=== PATIENT | female | born 1945 | race Caucasian/White ===

== ENCOUNTER → 2018-08-06 | Outpatient (CLI) | payer MEDICARE, BC ==
--- NOTE | 2018-08-10 15:16 | SLEEPCENT ---
DATE OF PROCEDURE: 08/06/2018 ORDERING PROVIDER: Dr. Louie Nocturnal polysomnography was performed for evaluation of sleep physiology in this patient with a history of excessive somnolence and nonrestorative sleep. 8 hours and 10 minutes of data were reviewed. There were 440 minutes of sleep identified. Sleep latency was short at 2 minutes. The patient did not achieve Rapid eye movement (REM) sleep. Sleep architecture was poor with poor progression and multiple fragmentations. Overall sleep efficiency was good at 91% but N3 or REM sleep was encountered. The patient's electrocardiogram showed an irregular supraventricular rhythm, possibly atrial fibrillation, ventricular response rate 90 beats per minute, ranging from 80-105. Electroencephalogram (EEG) showed mild coarsening in background, normal waveforms for awake and sleep. No focal events were identified. There were 310 respiratory events identified of 10 seconds in duration or greater for an apnea-hypopnea index of 42.3. The events were obstructive, not exclusive to sleep stage, more frequent but not exclusive to the supine posture. Arousals from respiratory events occurred 13.9 times per hour. There was also prominent limb activity. Some of the limb events were felt secondary to respiratory events, but limb movement arousal index was 8.2, snoring was noted over the entire study, and oxygen desaturations were seen into the low 80s. IMPRESSION: Severe obstructive sleep apnea syndrome (G47.33). Apnea-hypopnea index 42.3. RECOMMENDATIONS: The patient should be encouraged to return to sleep disorder center for pressure therapy. In the interim, alcohol and sedative avoidance should be practiced and caution exercised during the operation of motor vehicles.
== END ==
LOC: M SLEEP 20:00
PROVIDERS: ATTEND Internal Medicine Pulmonary Disease
DX: G47.30 Sleep apnea, unspecified (principal)

== ENCOUNTER → 2018-10-09 | Outpatient (CLI) | payer MEDICARE, BC ==
--- NOTE | 2018-10-10 15:51 | SLEEPCENT ---
DATE OF PROCEDURE: 10/09/2018 ORDERED BY: Dr. Louie Nocturnal polysomnography was performed for titration of pressure therapy in this patient with obstructive sleep apnea syndrome. Apnea-hypopnea index 42.3. For testing the patient was fit with a ResMed Quattro full face mask of small size; 4 cm of water pressure was applied to the circuit and the lights were extinguished. 7 hours and 30 minutes of data were reviewed. There were 298 minutes of sleep identified. Sleep latency was prolonged 58 minutes. Rapid eye movement (REM) latency was prolonged at 203.5 minutes. The sleep architecture improved in mid portion of the study. Overall sleep efficiency was 67.1%. Electrocardiogram (EKG) showed atrial fibrillation with a relatively regular rate of 68 beats per minute. Rate ranged from 60-83 per minute. EEG showed normal waveforms for awake and sleep stages. Respiratory events were reasonably well palliated with continuous positive airway pressure (CPAP) at a pressure of +7. Significant limb activity persisted despite pressure therapy. There were at least 3 trains of 30 events and the limb movement arousal index was 28.1. Significant increase from the patient's diagnostic night where the index was 84.2. IMPRESSION 1. Obstructive sleep apnea syndrome (G47.33). 2. Possible periodic limb movement disorder (G47.61). Limb movement arousal index 28.1. RECOMMENDATIONS: Nightly use of pressure therapy at 7 cm of water is sufficient to address the patient's obstructive respiratory events. Pending clinical response, interventions to reduce frequency or arousal from limb activity may also be helpful.
== END ==
LOC: M SLEEP 20:00
PROVIDERS: ATTEND Internal Medicine Pulmonary Disease
DX: G47.33 Obstructive sleep apnea (adult) (pediatric) (principal)

== ENCOUNTER → 2018-11-22 | Outpatient (CLI) | payer MEDICARE, BC ==
--- NOTE | 2018-11-22 10:55 | REP ---
REASON: Bronchiectasis. COMPARISON: 07/19/2008 a portable exam and the only prior. There is global cardiomegaly. Scattered asymmetric opacities are seen throughout the lung lay increased from the prior exam consistent with fibrotic change. The pleural angles are again seen to be sharp. The lung lay are hyperexpanded. There are chronic osseous changes. Since the last examination and intracardiac device has been placed. IMPRESSION: Marked chronic changes are suspected, however, since the latest prior examination is 07/19/2008 and a portable exam at that I cannot rule out the possibility of acute disease superimposed upon chronic change. There is no evidence of a pneumothorax. Other findings as described above. Electronically Signed by Antelmo Wallace DO 11/22/2018 10:57 A
== END ==
LOC: M SMT 10:14
PROVIDERS: ATTEND Internal Medicine Pulmonary Disease
DX: R91.8 Other nonspecific abnormal finding of lung field (principal)

== ENCOUNTER 2019-11-12 11:11 | Inpatient (IN) | payer MEDICARE, BC ==
[~2019-11-12] VITALS: Ht 170.2 cm; Wt 58.9 kg
[2019-11-12] MEDS: FUROSEMIDE 20 MG TAB PO SCH (09:00)
[2019-11-12 13:50] VITALS: BP 97/64
[2019-11-12] MEDS ORDERED: ALBUTEROL 90 MCG/ACT 8GM HFA INHALER INH PRN (14:30)
[2019-11-12] MEDS ORDERED: CEFE2INJ2 IV (14:44)
--- NOTE | 2019-11-12 14:50 | HPEPDOC ---
General Date of Admission 11/12/19 Date of Service: November 12, 2019 Chief Complaint The patient is a 74-year-old female admitted with a reason for visit of Worsening Pneumonia. History of Present Illness Patient is 74 years old female with past medical history of COPD with bronchiect asis, asthma, anxiety, chronic kidney diseases, [place], A. fib on Coumadin, mitral valve replacement with mechanical valve. Pseudomonas pneumonia was transferred to [facility] from [facility] we she was diagnosed with community-acquired pneumonia, atrial fibrillation with rapid ventricular rate and elevated troponin. Patient stated that for past 3 days has been having increased shortness of breath, associated with generalized weakness. In his [facility] patient was found elevated troponin to 0.1, blood culture was negative, no leukocytosis. CT chest was done and showed diffuse emphysema, pulmonary fibrosis, right upper lobe predominance likely secondary to pneumonia. Stool for blood was positive When I saw the patient patient was complaining of shortness of breath requiring 2 L of oxygen via nasal cannula, mid chest abdominal discomfort w/o radiation. Patient denied fever, chills, nausea, vomiting, diarrhea or dysuria. Home Medications Scheduled Aspirin (Aspirin EC) 81 Mg Tablet.dr, 81 MG PO DAILY, (Reported) Bupropion Hcl (Bupropion Xl) 150 Mg Tab.er.24h, 150 MG PO QHS, (Reported) Calcium Carbonate/Vitamin D3 (Calcium 600-Vit D3 400 Tablet) 1 Each Tablet, 1 TAB PO DAILY, (Reported) Cefepime in Iso-Osm Dextrose (Cefepime 2 gm Injection) 2 Gm/100 Ml Froz.piggy, 2 GM IV Q12H, (Reported) STARTED AT [facility] Digoxin (Digoxin) 125 Mcg Tablet, 125 MCG PO DAILY, (Reported) Diltiazem HCl (Diltiazem 24Hr ER) 180 Mg Cap.sa.24h, 180 MG PO DAILY, (Reported) Docusate Sodium (Colace) 100 Mg Capsule, 100 MG PO DAILY, (Reported) Enoxaparin Sodium (Enoxaparin Sodium) 60 Mg/0.6 Ml Syringe, 60 MG SQ Q12H, (Reported) Escitalopram Oxalate (Escitalopram Oxalate) 20 Mg Tablet, 20 MG PO DAILY, (Reported) Furosemide (Furosemide) 20 Mg Tablet, 20 MG PO DAILY, (Reported) Insulin Human Lispro (Humalog) 100 Unit/1 Ml Vial, 1 DOSE SC ACHS, (Reported) STARTED AT [facility] - PER SLIDING SCALE L. Rhamnosus GG/Inulin (Culturelle Capsule) 1 Each Cap.sprink, 1 CAP PO DAILY, (Reported) STARTED AT [facility] Metoprolol Succinate (Metoprolol Succinate) 50 Mg Tab.er.24h, 50 MG PO QHS, (Reported) Multivitamins (Thera M Plus Tablet) 1 Each Tablet, 1 TAB PO DAILY, (Reported) Pantoprazole Sodium (Pantoprazole Sodium) 40 Mg Tablet.dr, 40 MG PO DAILY, (Reported) Sitagliptin Phosphate (Januvia) 25 Mg Tablet, 25 MG PO DAILY, (Reported) Allergies Coded Allergies: sulfamethoxazole (Verified Allergy, Mild, RASH, 11/12/19) trimethoprim (Verified Allergy, Mild, RASH, 11/12/19) Past Medical History Medical History Asthma, atrial fibrillation, bronchiectasis, cervical arthritis, cryptogenic organizing pneumonia, osteopenia, Pseudomonas pneumonia, nonsustained, aspergillosis, CKD stage II, CVA, tachybradycardia syndrome. Surgical History Bronchoscopy, history of mitral wall replacement with mechanical valve, tubal ligation Family History I reviewed family history and found not pertinent Social History * Smoker: Denies Alcohol: Denies Drugs: denies A-FIB/CHADSVASC A-FIB History Current/History of A-Fib/PAF?: Yes Current PO Anticoag Therapy: Yes Review of Systems Constitutional: Reports: Malaise, Weakness; Denies: Fever Eyes: Denies: Pain ENT: Denies: Head Aches Skin: Denies: Rash, Lesions Pulmonary: Reports: Dyspnea, Cough Cardiovascular: Reports: Chest Pain, Palpitations Gastrointestinal: Denies: Nausea, Vomiting Genitourinary: Denies: Dysuria Endocrine: Denies: Polydipsia, Polyphagia Musculoskeletal: Denies: Neck Pain, Back Pain Neurological: Denies: Weakness Psych: Reports: Mood Normal Physical Examination General Exam: Positive: Alert, Cooperative, Mild Distress Eye Exam: Positive: PERRLA ENT Exam: Positive: Atraumatic Neck Exam: Positive: Supple; Negative: JVD Chest Exam: Positive: Rhonchi, Diminished Heart Exam: Positive: Irregular Rhythm Telemetry: Positive: Atrial fibrillation Abdomen Exam: Positive: Normal bowel sounds Extremity Exam: Positive: Clubbing; Negative: Cyanosis Skin Exam: Positive: Nl turgor and temperature Neuro Exam: Positive: Strength at 5/5 X4 ext, Cranial Nerves 3-12 NL Psych Exam: Positive: Mental status NL Vital Signs hr 90 Assessment/Plan Patient is 74 years old female with past medical history of COPD with bronchiectasis, asthma, anxiety, chronic kidney diseases, [place], A. fib on Coumadin, mitral valve replacement with mechanical valve. Pseudomonas pneumonia was transferred to [facility] from [facility] w e she was diagnosed with community-acquired pneumonia, atrial fibrillation with rapid ventricular rate and elevated troponin. Patient stated that for past 3 days has been having increased shortness of breath, associated with generalized weakness. In his [facility] patient was found elevated troponin to 0.1, blood culture was negative, no leukocytosis. CT chest was done and showed diffuse emphysema, pulmonary fibrosis, right upper lobe predominance likely secondary to pneumonia. Stool for blood was positive When I saw the patient patient was complaining of shortness of breath requiring 2 L of oxygen via nasal cannula, mid chest abdominal discomfort w/o radiation. Patient denied fever, chills, nausea, vomiting, diarrhea or dysuria. Problems (1) Sepsis Status: Acute Problem Text: 2/ CAP CT showed RL lung infiltrate. Pt has elevated LA, tachycardia and dyspnea hold Iv fluid given bilateral pleural effusion, pulmonary hypertension and right heart strain Await Bcx, sputum cx Levofloxacin IV Mrsa screen (2) Pneumonia Status: Acute Problem Text: Patient has a history of advanced COPD with bronchiectasis complicated by aspergillosis Patient recently had Pseudomonas pneumonia I will proceed with CTA to rule out PE Levofloxacin IV Incentive spirometry Inhalers (3) Chest pain Status: Acute Problem Text: We'll check troponin EKG showed atrial fibrillation with rapid ventricular rate Continue beta blockers for now Continue to monitor EKG Echo, BNP (4) Atrial fibrillation Status: Chronic Problem Text: Heart rate currently is under control, Will continue diltiazem and beta mila We'll check INR Continue beta blockers Patient has tachybradycardia syndrome Echo Appreciate/agree with log clerk consult (5) Cachexia Status: Chronic Problem Text: Patient has muscle wasting, low albumin High-protein diet Follow unit tender assessment Plan / VTE VTE Prophylaxis Ordered?: Yes LA LEGER DO November 12, 2019 14:49
[2019-11-12] MEDS ORDERED: ESCI20TA PO (14:56)
[2019-11-12] MEDS ORDERED: BUPR150T3 PO (14:56)
[2019-11-12] MEDS ORDERED: JANU25TA PO (14:56)
[2019-11-12] MEDS ORDERED: DIGO0.123 PO (14:56)
[2019-11-12] MEDS ORDERED: PANT40TA3 PO (14:56)
[2019-11-12] MEDS ORDERED: ASPI-161 PO (14:56)
[2019-11-12] MEDS ORDERED: METO1TAB7 PO (14:56)
[2019-11-12] MEDS ORDERED: FURO20TA2 PO (14:56)
[2019-11-12] MEDS ORDERED: INSUHUMDS SC (14:56)
[2019-11-12 15:17] LABS: ABG BASE EXCESS -2.3 (-2.0-2.0); ABG HCO3 21.5 MEQ/L (22.0-26.0); ABG O2 SATURATION 98.4 % (95.0-99.0); ABG PARTIAL PRESSURE O2 109.9 mmHg (75.0-100.0); ABG STANDARD HCO3 22.6 MEQ/L (22.0-26.0); ABG TOTAL CO2 22.5 MEQ/L (23.0-31.0); ABG pH (ARTERIAL) 7.431 UNITS (7.350-7.450)
[2019-11-12 15:18] LABS: HEMATOCRIT 28.8 % (36.0-47.0); HEMOGLOBIN 9.1 g/dl (12.0-15.5); MEAN CORPUSCULAR HEMOGLOBIN 32.3 pg (27.0-33.0); MEAN CORPUSCULAR HGB CONC 31.6 g/dl (32.0-36.5); MEAN CORPUSCULAR VOLUME 102.1 fl (80.0-96.0); PLATELET COUNT, AUTOMATED 173 10^3/uL (150-450); RED BLOOD COUNT 2.82 10^6/uL (4.00-5.40)
[2019-11-12] MEDS ORDERED: COLA100C5 PO (15:23)
[2019-11-12] MEDS ORDERED: VITMTA PO (15:23)
[2019-11-12] MEDS ORDERED: CULTCAP2 PO (15:23)
[2019-11-12] MEDS ORDERED: ENOX60IN3 SQ (15:23)
[2019-11-12] MEDS ORDERED: DILT1CAP3 PO (15:23)
[2019-11-12] MEDS ORDERED: CALC600T6 PO (15:23)
[2019-11-12 15:29] LABS: INR 1.28; PROTHROMBIN TIME 15.7 SECONDS (11.8-14.0)
[2019-11-12] MEDS: IPRATROPIUM 0.5MG/ALBUTEROL 2.5MG INH SOL UD 3ML (DUONEB)(J7620) INH SCH ×3 (15:39→23:23)
[2019-11-12 15:52] LABS: ALBUMIN 2.6 GM/DL (3.2-5.2); BILIRUBIN,TOTAL 0.3 MG/DL (0.2-1.0); CALCIUM LEVEL 8.9 MG/DL (8.8-10.2); CK-MB VALUE MASS 1.5 NG/ML (<3.6); CREATININE FOR GFR 1.37 MG/DL (0.55-1.30); GLOMERULAR FILTRATION RATE 40.3 (>39); MB/CK RELATIVE INDEX 6.82 (< OR =4); POTASSIUM SERUM 5.6 MEQ/L (3.5-5.1); TOTAL PROTEIN 6.4 GM/DL (6.4-8.2); TROPONIN I 0.07 NG/ML (< 0.10)
[2019-11-12] MEDS ORDERED: ISOVUE-370 76% 100ML VIAL As Ordered ONE (15:57)
[2019-11-12 16:00] VITALS: BP 100/60
[2019-11-12] MEDS: SODIUM CHLORIDE HYPERTONIC 3% 15ML NEB SOL INH SCH ×2 (16:00→23:25)
--- NOTE | 2019-11-12 17:05 | ECGEPIP ---
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
[2019-11-12] MEDS ORDERED: DEXTROSE 50% 50 ML SYRINGE IV STA ×2 (17:09→21:57)
[2019-11-12] MEDS ORDERED: HumuLIN R (REGULAR) INSULIN (NovoLIN R) **100U/ML** PER UNIT IV STA (17:09)
[2019-11-12] MEDS: LevoFLOXacin IV 750 MG in IV 1 EA IV SCH (17:16)
[2019-11-12] MEDS ORDERED: CALCIUM GLUCONATE 1,000 MG in D5W MINI-BAG PLUS 100 ML IV ONE (17:30)
[2019-11-12] MEDS ORDERED: NS 500 ML IV ONE (17:30)
[2019-11-12] MEDS ORDERED: ALBUTEROL SULFATE 2.5 MG/0.5 ML INH NEB SOLN NEB ONE (17:30)
[2019-11-12] MEDS ORDERED: FUROSEMIDE 20MG/2ML VIAL (J1940) IV SCH (18:00)
[2019-11-12] MEDS ORDERED: NS 1,000 ML IV SCH (18:30)
[2019-11-12 19:04] LABS: CALCIUM LEVEL 8.9 MG/DL (8.8-10.2); CREATININE FOR GFR 1.3 MG/DL (0.55-1.30); GLOMERULAR FILTRATION RATE 42.9 (>39); POTASSIUM SERUM 5.3 MEQ/L (3.5-5.1)
[2019-11-12] MEDS ORDERED: AMIODARONE HCL 150 MG in IV 1 EA IV STA ×2 (19:50→21:31)
[2019-11-12 20:00] VITALS: BP_SYST 100; BP_SYST 142; BP_DIAS 58; BP_DIAS 78
[2019-11-12] MEDS ORDERED: ENOXAPARIN 60MG/0.6ML SYRINGE (J1650 PER 10MG) SQ SCH (21:00)
[2019-11-12] MEDS ORDERED: METOPROLOL SUCC (TopROL XL) 50MG **XL** TAB PO SCH (21:00)
[2019-11-12 21:18] LABS: CALCIUM LEVEL 8.7 MG/DL (8.8-10.2); CREATININE FOR GFR 1.44 MG/DL (0.55-1.30); GLOMERULAR FILTRATION RATE 38.1 (>39); MAGNESIUM LEVEL 1.7 MG/DL (1.8-2.4); PHOSPHORUS LEVEL 1.7 MG/DL (2.5-4.9); POTASSIUM SERUM 5.5 MEQ/L (3.5-5.1); TROPONIN I 0.05 NG/ML (< 0.10)
[2019-11-12 21:20] VITALS: BP 98/60
[2019-11-12] MEDS: buPROPion **XL** TABLET 150MG (WELLBUTRIN XL) PO SCH (21:49)
[2019-11-12] MEDS ORDERED: K-PHOS NEUTRAL 250MG TABLET (SOD.PHOSPHATE/POT.PHOSPHATE) PO ONE (22:00)
[2019-11-12] MEDS ORDERED: MAGNESIUM OXIDE 400 MG TAB (MAG-OX) PO ONE (22:00)
[2019-11-12] MEDS ORDERED: HumuLIN R (REGULAR) INSULIN (NovoLIN R) **100U/ML** PER UNIT IV ONE (22:00)
[2019-11-12 22:08] VITALS: BP 96/56
[2019-11-12 22:30] VITALS: BP 94/56
[2019-11-12] MEDS ORDERED: AMIODARONE HCL 360 MG in IV 1 EA IV SCH (22:45)
[2019-11-12 23:13] LABS: DIGOXIN LEVEL 1.8 NG/ML (0.5-2.0)
[2019-11-13] VITALS (56 sets, daily range): BP systolic 74–120; BP diastolic 40–74; O2SAT 76
[2019-11-13] MEDS: SODIUM CHLORIDE HYPERTONIC 3% 15ML NEB SOL INH SCH
[2019-11-13] MEDS ORDERED: AMIODARONE HCL 150 MG in IV 1 EA IV STA ×4 (01:04→14:08)
[2019-11-13 01:48] LABS: HEMATOCRIT 27.8 % (36.0-47.0); MEAN CORPUSCULAR HEMOGLOBIN 32.5 pg (27.0-33.0); MEAN CORPUSCULAR HGB CONC 32.4 g/dl (32.0-36.5); MEAN CORPUSCULAR VOLUME 100.4 fl (80.0-96.0); PLATELET COUNT, AUTOMATED 169 10^3/uL (150-450); RED BLOOD COUNT 2.77 10^6/uL (4.00-5.40); WHITE BLOOD COUNT 7.5 10^3/uL (4.0-10.0)
[2019-11-13] MEDS: METOPROLOL TART 50 MG TAB PO SCH ×4 (01:49→20:00)
[2019-11-13 01:52] LABS: ALBUMIN 2.4 GM/DL (3.2-5.2); BILIRUBIN,TOTAL 0.3 MG/DL (0.2-1.0); CALCIUM LEVEL 8.8 MG/DL (8.8-10.2); CREATININE FOR GFR 1.35 MG/DL (0.55-1.30); MAGNESIUM LEVEL 1.8 MG/DL (1.8-2.4); PHOSPHORUS LEVEL 2.1 MG/DL (2.5-4.9); POTASSIUM SERUM 5.3 MEQ/L (3.5-5.1); TOTAL PROTEIN 6.1 GM/DL (6.4-8.2)
[2019-11-13] MEDS: IPRATROPIUM 0.5MG/ALBUTEROL 2.5MG INH SOL UD 3ML (DUONEB)(J7620) INH SCH ×3 (03:34→08:00)
[2019-11-13] MEDS ORDERED: AMIODARONE HCL 360 MG in IV 1 EA IV SCH (04:45)
[2019-11-13 05:53] LABS: HEMATOCRIT 28.3 % (36.0-47.0); HEMOGLOBIN 9.2 g/dl (12.0-15.5); MEAN CORPUSCULAR HEMOGLOBIN 32.7 pg (27.0-33.0); MEAN CORPUSCULAR HGB CONC 32.5 g/dl (32.0-36.5); MEAN CORPUSCULAR VOLUME 100.7 fl (80.0-96.0); PLATELET COUNT, AUTOMATED 192 10^3/uL (150-450); RED BLOOD COUNT 2.81 10^6/uL (4.00-5.40); WHITE BLOOD COUNT 9.4 10^3/uL (4.0-10.0)
[2019-11-13 06:25] LABS: ALBUMIN 2.5 GM/DL (3.2-5.2); BILIRUBIN,TOTAL 0.4 MG/DL (0.2-1.0); CALCIUM LEVEL 9.1 MG/DL (8.8-10.2); CREATININE FOR GFR 1.34 MG/DL (0.55-1.30); GLOMERULAR FILTRATION RATE 41.4 (>39); MAGNESIUM LEVEL 1.9 MG/DL (1.8-2.4); POTASSIUM SERUM 5.1 MEQ/L (3.5-5.1); TOTAL PROTEIN 6.2 GM/DL (6.4-8.2)
[2019-11-13] MEDS ORDERED: DOPamine HCL 400 MG in IV 1 EA IV SCH ×2 (07:00→07:53)
[2019-11-13] MEDS: DOBUTamine HCL 500,000 MCG in IV 1 EA IV SCH ×2 (07:15→23:44)
[2019-11-13] MEDS ORDERED: ATROPINE SULF 1MG/10ML SYRINGE (J0461) IV STA (07:45)
[2019-11-13] MEDS ORDERED: ATROPINE SULF 1MG/10ML SYRINGE (J0461) As Ordered ONE (07:47)
[2019-11-13] MEDS ORDERED: DOPamine 400 MG/500 ML BAG IN D5W (800MCG/ML) (J1265) As Ordered ONE (08:00)
[2019-11-13 08:08] LABS: ABG HCO3 15.4 MEQ/L (22.0-26.0); ABG O2 SATURATION 85.1 % (95.0-99.0); ABG PARTIAL PRESSURE CO2 24.9 mmHg (35.0-45.0); ABG PARTIAL PRESSURE O2 51.5 mmHg (75.0-100.0); ABG STANDARD HCO3 17.8 MEQ/L (22.0-26.0); ABG TOTAL CO2 16.1 MEQ/L (23.0-31.0); ABG pH (ARTERIAL) 7.408 UNITS (7.350-7.450)
[2019-11-13] MEDS: ONDANSETRON 4MG/2ML VIAL IV SCH ×4 (08:14→23:44)
[2019-11-13] MEDS ORDERED: FUROSEMIDE 100MG/10ML VIAL (J1940) As Ordered ONE (08:21)
[2019-11-13] MEDS ORDERED: FUROSEMIDE 100MG/10ML VIAL (J1940) IV ONE (08:30)
[2019-11-13] MEDS ORDERED: diltiaZEM **CD** 180 MG CAP PO SCH (09:00)
[2019-11-13] MEDS ORDERED: AMIODARONE 200 MG TAB (PACERONE) PO SCH ×2 (09:00)
[2019-11-13] MEDS ORDERED: DIGOXIN 0.125 MG TAB PO SCH (09:00)
[2019-11-13 09:38] LABS: CALCIUM LEVEL 8.6 MG/DL (8.8-10.2); CREATININE FOR GFR 1.59 MG/DL (0.55-1.30); POTASSIUM SERUM 5.5 MEQ/L (3.5-5.1)
[2019-11-13] MEDS ORDERED: SOD POLYSTYRENE SULFONATE SUSP 15 GM/60 ML UD PO ONE (10:00)
[2019-11-13] MEDS: ESCITALOPRAM OXALATE 10 MG TAB (LEXAPRO) PO SCH (10:22)
[2019-11-13] MEDS: PANTOPRAZOLE 40MG TAB (PROTONIX) PO SCH (10:22)
[2019-11-13] MEDS: ASPIRIN 81 MG ENTERIC TAB PO SCH (10:22)
[2019-11-13] MEDS: DOCUSATE SODIUM 100 MG CAP PO SCH (10:22)
[2019-11-13] MEDS: ENOXAPARIN 30MG/0.3ML SYRINGE (J1650 PER 10MG) SC SCH ×2 (10:22→20:29)
[2019-11-13] MEDS ORDERED: IPRATROPIUM 0.5MG/ALBUTEROL 2.5MG INH SOL UD 3ML (DUONEB)(J7620) INH PRN (11:15)
--- NOTE | 2019-11-13 11:19 | ECHO ---
DATE OF PROCEDURE: 11/12/2019 DATE OF : 1945 AGE: 74 GENDER: Female. HEIGHT: 67 inches WEIGHT: 121 pounds BODY SURFACE AREA: 1.63 m2 INPATIENT: Currently in the intensive care unit (ICU), room 3202. INDICATION: Abnormal EKG. MEASUREMENTS: 2-D Measurements: RV: 5.4 cm LV: 5.2 cm Septum: 1.0 cm Posterior wall: 1.0 cm Aortic root: 3.1 cm LA: 4.6 cm LVEF: 10-20% Doppler Measurements: AV: 1.5 m/sec LVOT: 1.1 m/sec LVOT diameter: 1.8 cm MV - E: 205, A: 237, EA ratio: 0.9 Mean MV diastolic gradient: 9 mmHg PV: 0.8 m/sec Pulmonary artery acceleration time: 70 ms RVSP: 68-73 mmHg IVC: 2.6 cm COMMENTS: Normal sinus rhythm with left bundle branch block. M-mode and two-dimensional echocardiography was performed with pulsed, continuous wave, color flow and tissue Doppler studies. Normal left ventricular size and wall thickness with paradoxical septal motion due to left bundle branch block as well as right ventricular pressure overload. Other wall motion was hypokinetic with apical akinesis. Global left ventricular systolic function severely impaired. Moderately dilated left atrium. Unable to comment on left ventricular diastolic function or estimate mean left atrial pressure in light of mitral valve disorder/prosthetic mitral valve. Prominently dilated right heart chambers with right ventricular free wall hypokinesis and severe pulmonary hypertension. Dilated pulmonary artery measuring 3.0 cm. Prominently dilated inferior vena cava with markedly reduced respiratory variation in keeping with an elevated central venous pressure. Normal aortic dimensions. Mild aortic valvular sclerosis with adequate cusp separation but premature closure in keeping with reduced forward stroke volume. Mild to moderate insufficiency. Bioprosthetic mitral valve with adequate cusp separation and mean gradient appropriate for this device. Mild prostatic insufficiency. Normal appearing tricuspid valve but severe tricuspid insufficiency. No apparent intracardiac mass or pericardial effusion.
[2019-11-13] MEDS: predniSONE 5 MG TAB PO SCH (11:50)
[2019-11-13] MEDS ORDERED: AMIODARONE HCL 150 MG/100 ML PREMIXED BAG (NEXTERONE) (J0282 PER 30MG) As Ordered ONE (12:10)
--- NOTE | 2019-11-13 12:49 | ECGEPIP ---
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 Rhythm change from atrial fibrillation 11/12/19 Electronically Signed on 11-13-2019 12:49:13 EDT by Dorian Dickson
[2019-11-13] MEDS: AMIODARONE 200 MG TAB (PACERONE) PO SCH ×3 (13:35→20:28)
[2019-11-13] MEDS: ACETAMINOPHEN TAB 650MG DOSE (2X325MG) PO PRN (14:04)
[2019-11-13] MEDS: FORMOTEROL FUMARATE 20 MCG/2 ML INHALATION SOLUTION (PERFOROMIST) INH SCH ×2 (14:19→19:50)
[2019-11-13] MEDS: BUDESONIDE 0.5 MG/2 ML INHALATION SUSPENSION INH SCH ×2 (14:21→19:50)
[2019-11-13] MEDS ORDERED: MORPHINE 2 MG/ML 1ML VIAL (J2270) IV PRN (14:45)
[2019-11-13 14:50] LABS: CALCIUM LEVEL 8.5 MG/DL (8.8-10.2); CREATININE FOR GFR 1.63 MG/DL (0.55-1.30)
--- NOTE | 2019-11-13 15:15 | IPNPDOC ---
Date Seen The patient was seen on 11/13/19. Progress Note SUBJECTIVE: Starting evening shift on 11/12/19 I was notified patient had been in atrial fibrillation with RVR with HR 140-198 7:00 PM-7:45 PM. Patient was in mild distress, was having chest pain, shortness of breath and lightheaded. BP showed MAP >65. ECG showed atrial fib with RVR, troponin neg. BNP was elevated even prior on admission at >40K. 2 amiodarone 150 mg boluses were administered c onsecutively, each being ran over 30 mins to prevent hypotension. Her blood pressure was high 90s, MAP >65. She was then started on amiodarone gtt. Atrial fib with RVR persisted with HR in 120s. Cardiology was called at this time (Dr. Dickson) and amiodarone gtt was stopped. I was instructed to give another amiodarone bolus, start metoprolol 50 mg PO Q6hrs (first dose right away) and to start on amiodarone 200 mg PO QID. I asked about holding parameters on metoprolol and the instruction was only to hold for HR <70 but no BP holding parameters. HR improved to 100-110. Electrolytes were replaced earlier in the evening, magnesium and phosphorous. She had an elevated K, she was given 10 U regular insulin with 1/2 amp dextrose push. Several hours after the administration of 3rd amiodarone bolus and metoprolol 50 mg PO, at 06:35 AM (prior to shift change) patient was on the toilet per nurse, HR went bradycardic at 42-43, patient was lightheaded, dizzy, diaphoretic, BP systolic 88 mmHg, MAP <65, 95 % on RA. Zofran was ordered for nausea. Cardiology was again called, dobutamine gtt was started per their recommendations. I asked if we should transfer to ICU, the instruction was to keep on PCU at this current time. Cardiology to see today. Case discussed in detail with oncoming provider. Seperate issue dealt with overnight included a bleeding internal hemorrhoid. Suppository added to medication regimen. H/H was checked and it was stable. OBJECTIVE: VITAL SIGNS: Please see below PHYSICAL EXAMINATION: GENERAL: Appears uncomfortable, mild distress but AAOx3 HEENT: AT/NC, EOM intact, PERRLA, corrective lenses in place CARDIOVASCULAR: S1, S2 +, irregularly irregular rhythm, bradycardic RESPIRATORY: crackles in bilateral lung bases, no wheezing/rhonchi/rales ABDOMINAL: BS + in 4 quadrants, soft, nontender, nondistended, no organomegaly : No external hemorrhoids seen, no bleeding. EXTREMITIES: warm, pulses +2 DP, PT, popliteal in lower ext, radial pulses strong bilateral upper ext, <2 seconds cap refill in upper and lower ext digits. ROM not tested, no edema NEUROLOGICAL: AAOx3, no focal deficits, CN 2-12 intact PSYCHOLOGICAL: Mood and affect appropriate. LABORATORY DATA: Please see below IMAGING: Echocardiogram to be done today ASSESSMENT: 74 y/o F with new onset bradycardia, decompensating congestive heart failure. PROBLEMS addressed over shift: 1. Bradycardia, medication induced vs. decompensating heart failure. Dopamine gtt. 2. Hypotension, medication induced vs. decompensating heart failure. Dopamine gtt. 3. Congestive heart failure, type unknown. echo to be done today 4. Atrial fibrillation with RVR. S/p 3 amiodarone boluses, amiodarone gtt. Stopped diltiazem and digoxin patient was previously on. Prior to bradycardia and hypotension metoprolol and amiodarone PO was added to regimen. 3. Hyperkalemia 4. Hypophosphatemia 5. N/V 2/2 to problem #2 currently 6. Bleeding internal hemorrhoid DISPOSITION: Status is guarded/critical. Discussed case with Dr. Schuster, oncoming provider. Would recommend transfer to ICU bed for close monitoring. VS, I&O, 24H, Fishbone Vital Signs/I&O Vital Signs Date Time Temp Pulse Resp B/P (MAP) Pulse Ox O2 Delivery O2 Flow Rate FiO2 11/13/19 13:35 101 90/54 11/13/19 13:00 98 HVNI-Vapotherm 20.0 80 11/13/19 12:00 97.8 28 I&O- Last 24 Hours up to 6 AM 11/13/19 06:00 Intake Total 240 ml Output Total 600 ml Balance -360 ml Laboratory Data 24H LABS Laboratory Tests 2 11/12/19 15:03: Nucleated Red Blood Cells % (auto) 0.0, Prothrombin Time 15.7H, Prothromb Time International Ratio 1.28, Anion Gap 8, Glomerular Filtration Rate 40.3, Lactic Acid Level 3.9*H, Calcium Level 8.9, Total Bilirubin 0.3, Aspartate Amino Transf (AST/SGOT) 17, Alanine Aminotransferase (ALT/SGPT) 42, Alkaline Phosphatase 117, Total Creatine Kinase 22L, Creatine Kinase MB 1.5, Creatine Kinase MB Relative Index 6.82H, Troponin I 0.07, Total Protein 6.4, Albumin 2.6L, Albumin/Globulin Ratio 0.7L, Procalcitonin 2.17 11/12/19 15:09: Blood Gas Bicarbonate Standard 22.6, Arterial Blood pH 7.431, Arterial Blood Partial Pressure CO2 33.0L, Arterial Blood Partial Pressure O2 109.9H, Arterial Blood Total CO2 22.5L, Arterial Blood HCO3 21.5L, Arterial Blood Base Excess - 2.3L, Arterial Blood Oxygen Saturation 98.4 11/12/19 16:08: Urine Color YELLOW, Urine Appearance CLEAR, Urine pH 5.0, Urine Specific [place] 1.016, Urine Protein NEGATIVE, Urine Glucose (UA) 1+H, Urine Ketones TRACEH, Urine Blood NEGATIVE, Urine Nitrite NEGATIVE, Urine Bilirubin NEGATIVE, Urine Urobilinogen 0.2, Urine Leukocyte Esterase NEGATIVE, Urine WBC (Auto) 1, Urine RBC (Auto) 1, Urine Hyaline Casts (Auto) 0, Urine Bacteria (Auto) NEGATIVE, Urine Squamous Epithelial Cells 1, Urine Sperm (Auto) 11/12/19 16:12: Methicillin-Resist S.aureus DNA PCR NOT DETECTED 11/12/19 17:38: Anion Gap 5L, Glomerular Filtration Rate 42.9, Calcium Level 8.9, OV-Ynl-O-Type Natriuretic Peptide [id number] 11/12/19 19:29: Lactic Acid Followup at 4 Hours 3.9*H 11/12/19 20:37: Anion Gap 9, Glomerular Filtration Rate 38.1L, Calcium Level 8.7L, Phosphorus Level 1.7L, Magnesium Level 1.7L, Troponin I 0.05#, Digoxin Level 1.8 11/13/19 01:04: Anion Gap 10, Glomerular Filtration Rate 41.0, Calcium Level 8.8, Phosphorus Level 2.1#L, Magnesium Level 1.8, Total Bilirubin 0.3, Aspartate Amino Transf (AST/SGOT) 17, Alanine Aminotransferase (ALT/SGPT) 39, Alkaline Phosphatase 103, Total Protein 6.1L, Albumin 2.4L, Albumin/Globulin Ratio 0.6L 11/13/19 01:44: Nucleated Red Blood Cells % (auto) 0.0 11/13/19 05:16: Nucleated Red Blood Cells % (auto) 0.0, Anion Gap 7L, Glomerular Filtration Rate 41.4, Calcium Level 9.1, Magnesium Level 1.9, Total Bilirubin 0.4, Aspartate Amino Transf (AST/SGOT) 19, Alanine Aminotransferase (ALT/SGPT) 39, Alkaline Phosphatase 106, Total Protein 6.2L, Albumin 2.5L, Albumin/Globulin Ratio 0.7L 11/13/19 07:50: Blood Gas Bicarbonate Standard 17.8L, Arterial Blood pH 7.408, Arterial Blood Partial Pressure CO2 24.9L, Arterial Blood Partial Pressure O2 51.5L, Arterial Blood Total CO2 16.1L, Arterial Blood HCO3 15.4L, Arterial Blood Base Excess - 8.0L, Arterial Blood Oxygen Saturation 85.1L 11/13/19 09:08: Anion Gap 11, Glomerular Filtration Rate 34.0L, Calcium Level 8.6L 11/13/19 13:58: CBC/BMP Laboratory Tests 11/12/19 15:03 11/12/19 17:38 11/12/19 20:37 11/13/19 01:04 11/13/19 01:44 11/13/19 05:16 11/13/19 09:08 Microbiology Microbiology 11/12/19 Blood Culture, Received Pending Cornelia Herndon MD November 13, 2019 15:15
--- NOTE | 2019-11-13 15:25 | IPNPDOC ---
Text Note Date of Service The patient was seen on 11/13/19. NOTE Subjective: Overnight patient developed atrial fibrillation with rapid ventri cular rate, patient received amiodarone and beta blockers subsequently she developed hypotension with bradycardia, patient received dobutamine and dopamine drip, blood pressure was stabilized. Objective: GENERAL: In severe distress HEENT: Plus JVD, PERRLA CARDIOVASCULAR: irregularly irregular rhythm, S1-S2 RESPIRATORY: Bilateral crackles ABDOMINAL: , soft, nontender, nondistended, no organomegaly EXTREMITIES: +2 pitting edema NEUROLOGICAL: Mildly confused, forgetful, cranial nerves from 2-12 intact Assessment and plan: Patient is 74 years old female with past medical history of COPD with b ronchiectasis, asthma, anxiety, chronic kidney diseases, VA, A. fib on Coumadin, mitral valve replacement with mechanical valve. Pseudomonas pneumonia was transferred to [facility] from [facility] we she was diagnosed with community-acquired pneumonia, atrial fibrillation with rapid ventricular rate and elevated troponin. Patient stated that for past 3 days has been having increased shortness of breath, associated with generalized weakness. [facility] was found elevated troponin to 0.1, blood culture was negative, no leukocytosis. CT chest was done and showed diffuse emphysema, pulmonary fibrosis, right upper lobe predominance likely secondary to pneumonia. Stool for blood was positive. During hospital stay patient developed atrial fibrillation with rapid ventricular rate treated with amiodarone and beta blockers, developed hypotension and bradycardia requiring pressor support. Also patient was found have a pulmonary hypertension with ejection fraction of 10%. After lengthy discussion with her sons the CODE STATUS was changed to DNR/DNI. Overall prognosis guarded due to multiple comorbidities including advanced COPD bronchiectasis and pulmonary fibrosis superimposed with pneumonia and acute combined systolic and diastolic CHF. Patient currently is on vasopressors. The family will make decision about PLASTIC TILE SETTER when her son who lives in [place] will come to the hospital. Problems (1) Sepsis 2/[address] showed RL lung infiltrate. Pt has elevated LA, tachycardia and dyspnea hold Iv fluid given bilateral pleural effusion, pulmonary hypertension and right heart strain Bcx negative Await sputum cx Levofloxacin IV Mrsa screen negative (2) Pneumonia Patient has a history of advanced COPD with bronchiectasis complicated by aspergillosis Patient recently had Pseudomonas pneumonia CTA was negative for PE, showed bilateral pulmonary effusion with pulmonary fibrosis right lower lobe infiltrate and right heart strain, official report pending. Levofloxacin IV Incentive spirometry Inhalers (3) Chest pain Resolved for now (4) Atrial fibrillation Heart rate currently is under control, patient continues to be on the dopamine and dobutamine drip. Echo showed 10% ejection fraction with severe pulmonary hypertension repair cameraman team follows her (5) Cachexia Patient has muscle wasting, low albumin High-protein diet Follow chemistry lab instructor assessment Acute CHF Combined systolic and diastolic Ejection fraction 10% with severe pulmonary hypertension Continue dopamine and dobutamine drip Morphine for dyspnea Plan / VTE VTE Prophylaxis Ordered?: Yes VS,Fishbone, I+O VS, Fishbone, I+O Laboratory Tests 11/12/19 17:38 11/12/19 20:37 11/13/19 01:04 11/13/19 01:44 11/13/19 05:16 11/13/19 09:08 11/13/19 13:58 Vital Signs Date Time Temp Pulse Resp B/P (MAP) Pulse Ox O2 Delivery O2 Flow Rate FiO2 11/13/19 13:35 101 90/54 11/13/19 13:00 98 HVNI-Vapotherm 20.0 80 11/13/19 12:00 97.8 28 I&O- Last 24 Hours up to 6 AM 11/13/19 06:00 Intake Total 240 ml Output Total 600 ml Balance -360 ml LA LEGER DO November 13, 2019 15:25
[2019-11-13] MEDS ORDERED: diphenhydrAMINE 50MG/ML VIAL (J1200) IV PRN (15:45)
--- NOTE | 2019-11-13 20:05 | CR ---
DATE OF CONSULTATION: 11/13/2019 CARDIOLOGY CONSULTATION REFERRING PHYSICIAN: Dr. Erasto Schuster, hospitalist INDICATION: Paroxysmal atrial fibrillation with history of tachy-yanna syndrome/respiratory distress. HISTORY: This is a 74-year-old, , mother of two grown children, resident of [place], [place], has a history of advanced pulmonary disease, sarcoidosis, bronchiectasis, aspergillosis, chronic bronchitis, and significant nontreated obstructive sleep apnea as well as mitral valvular heart disease, status post bioprosthetic valve replacement last year, [facility]. She was transferred to [facility] yesterday, having been an inpatient at [facility] in [place] for the past 5 days, admitted with acute on chronic respiratory distress and suspected pneumonia. Her course was complicated by paroxysmal atrial fibrillation with rapid ventricular response and episodic marked bradycardia. At the time of her transfer yesterday, her initial vital signs showed a heart rate of 91 beats per minute, blood pressure 97/64, respiratory rate of 24, and oxygen saturation of 98 on supplemental oxygen by nasal prongs at 2 liters per minute. She was afebrile. A chest CT scan that has not been reported showed evidence of advanced pulmonary problems as well as significant cardiomegaly with left atrial and significant right heart chamber enlargement. Left ventricle appeared to be normal in size. Findings in keeping with her known mitral valvular heart disease and severe pulmonary hypertension and right heart failure. Initial telemetry strips showed a sinus rhythm with left bundle branch block. An echocardiogram performed yesterday shortly following her admission showed evidence of a normal left ventricular size and wall thickness but septal wall motion abnormality and global systolic function that was severely impaired, left ventricular ejection fraction (LVEF) 10-%-20%. Her prosthetic mitral valve appear to be functioning appropriately with a mildly to moderately dilated left atrium. Right heart chambers were significantly dilated with severe pulmonary hypertension, right ventricular systolic pressure are measuring 68-73 mm of mercury, and significantly dilated inferior vena cava with reduced respiratory collapse, in keeping with right heart failure. No pericardial effusion. Admission blood work showed a macrocytic anemia with hemoglobin 9.1. Normal white blood cell count and platelet count, PT/INR that was increased to 15.7/1.28. Arterial blood gas on supplemental oxygen showed a pH of 7.43, pCO2 of 33, pO2 of 109.9. Initial potassium was elevated at 5.6, but other electrolytes were normal. BUN was 43, creatinine 1.37. Random glucose was elevated at 231. Liver function studies were normal except for her elevated PT/INR and albumin of 2.6. Ultrasensitive TSH in the past has been normal. Her troponin I was within normal limits given her renal function, but proBNP level was 43,362, as we might expect based of her echocardiographic findings. She had been admitted to a telemetry floor with insulin sliding scale continued combination albuterol, amiodarone, metoprolol succinate with hold parameter and low-dose intravenous (IV) Lasix. At approximately 8 p.m. yesterday, she developed recurrent atrial fibrillation with rapid ventricular response, rates up to 190 beats per minute with blood pressure in the 90s systolic. I was consulted and recommended the use of parenteral amiodarone with continued metoprolol succinate 50 mg by mouth every 6 hours with hold parameters for heart rate less than 70. At approximately 4 in the morning, she converted her rhythm from atrial fibrillation to initially a junctional rhythm in the 40s and was started on dobutamine IV infusion. Because of the patient distress, hypoxia, and relative hypotension, she was also started on dopamine IV infusion and transferred to the intensive care unit. By the time she arrived in the intensive care unit, her heart rate was in the 60s, EKG showing sinus rhythm with left bundle branch block, and her blood pressure was in the 90s on high-flow oxygen. Her oxygen saturation improved to 100%. Pulmonary medicine was following her case closely, and she remained on IV antibiotic therapy, albuterol, and controlled supplemental oxygen. Despite our gradually weaning down her dopamine and dobutamine, she developed recurrent atrial fibrillation with rapid ventricular response at 150 beats per minute (BPM) at noon. We administered recurrent doses of amiodarone 150 mg IV infusion over 10 minutes over the course of several hours, because of a heart rate in excess of 100 BPM. At approximately 2:30, she developed recurrent marked bradycardia, junctional rhythm. Her blood pressure was in the 90s systolic, but her oxygen saturation was starting to fall. I had spoken frankly with her children, Castro, her son in [place], and Ankit, her son in [place], on the phone, and personally regarding her very guarded, non-fixable medical problems, and extremely poor prognosis. Dr. Cordon of pulmonary medicine also discussed her advanced non-fixable pulmonary problems. The appeared to understand, and despite the patient having mentioned she withdrew her DO NOT RESUSCITATE/DO NOT INTUBATE on her presentation, it was apparent the patient was confused at this time, and her family members reinstituted her DO NOT RESUSCITATE. OTHER CARDINAL CARDIAC SYMPTOMS: The patient denied experiencing any chest discomfort. Did complain of shortness of breath and weakness but apparently had no awareness of her heart action per se. No evidence of embolic phenomenon. No history of claudication. Customarily restricted by dyspnea but had been living at home with assistance. OTHER KNOWN PAST CARDIAC DISEASE: The patient is not aware of the name of her technical information specialist at [facility] or the surgeon who performed her mitral valve replacement (bioprosthetic) last year at the [facility]. No known coronary artery disease. History of paroxysmal atrial fibrillation, as mentioned. Has been on oral anticoagulant therapy. OTHER KNOWN PAST MEDICAL HISTORY: As mentioned advanced, COPD/bronchiectasis, hyperactive airway disease, Pseudomonas pneumoniae, and obstructive sleep apnea (the latter not treated). Diffuse emphysema and pulmonary fibrosis. SYSTEMS REVIEW: Unfortunately, we are unable to obtain meaningful history from the patient, and there are no current records from [facility] from our review. FAMILY HISTORY: Not applicable. CURRENT MEDICATIONS: - amiodarone 200 mg by mouth four times a day - metoprolol 50 mg by mouth every 6 hours; hold for heart rate less than 100 - albuterol inhaler two puffs every 4 hours as needed for dyspnea - levofloxacin 750 mg IV every 48 hours - Wellbutrin 150 mg by mouth at bedtime - Zofran 4 mg IV every 6 hours as needed for nausea - Perforomist 20 mcg inhaler one ablation twice a day - Pulmicort 0.5 mg inhaler, one inhalation twice a day - prednisone 5 mg by mouth daily - Protonix 40 mg by mouth daily - Lexapro 20 mg by mouth daily - Colace 100 mg by mouth daily - aspirin 81 mg daily - enoxaparin 30 mg subcutaneous every 12 hours - Tylenol 650 mg by mouth every 6 hours as needed for pain or fever ALLERGIES: SEPTRA. PHYSICAL EXAMINATION: CONSTITUTIONAL: A thin, somewhat cachectic, lethargic, elderly woman, currently appearing mildly distressed because of abdominal discomfort/nausea. Denying chest pain and acutely not dyspneic. VITAL SIGNS: Heart rate when examined her before noon 72 beats per minute and regular with occasional irregularity, blood pressure 94/60, respiratory rate 24 per minute, oxygen saturation 100% on supplemental oxygen high flow at 80%. Weight 124 pounds, height 67 inches, body mass index (BMI) 19.4. EYES: Slightly pale conjunctivae but no icterus or petechiae. No xanthelasma. ENT/MOUTH: Normal oral moisture. No central cyanosis. NECK: Trachea midline. Neck veins were elevated 6-8 cm above the (cut off). No thyroid enlargement. RESPIRATORY: Increased anterior-posterior chest diameter with reduced the chest excursion. Has fine inspiratory crepitations, both lower lobes posteriorly, the right more than left with prolonged expiration but no current audible wheeze. CARDIOVASCULAR: Apical impulse was palpable despite her increased chest diameter at the left anterior axillary line, 6th intercostal space. Heart sounds were slightly distant with soft S1, normal S2 intensity, but persistent S2 splinting. No audible gallop. Has a soft systolic ejection murmur but no audible prosthetic mitral insufficiency murmur. Normal carotid upstrokes with reduced carotid volume but no bruits. Upper extremity pulses and femoral pulses were symmetrical and normal. Pedal pulses were reduced. Abdominal aorta not palpable. EXTREMITIES: Has virtually no lower extremity or sacral pitting edema. No varicose veins. No clubbing, peripheral cyanosis, or splinter hemorrhages. GASTROINTESTINAL: Soft but vaguely diffusely tender and somewhat protuberant. Has reduced the bowel sounds. No apparent hepatosplenomegaly. RECTAL: Examination not indicated. MUSCULOSKELETAL: No obvious joint deformities but obvious proximal muscle wasting and weakness. Normal tone. NEUROLOGIC/PSYCHIATRIC: Was aware of where she was in hospital but poor memory for recent events. Eye, facial, and extremity movements were symmetrical. Obviously could not assess her gait. No involuntary movements. Lethargic, as mentioned. SKIN: Slightly pale but no icterus. No ecchymotic lesions or rashes. INVESTIGATIONS: CT chest angiography: Study performed yesterday, reviewed independently, shows obvious cardiomegaly with normal-appearing left ventricular size and wall thickness. At least moderately dilated left atrium. Echogenic bioprosthetic valve in the mitral position. Aortic root and thoracic aorta were of normal size. Minimal aortic valvular sclerosis. Some coronary calcification. Dilated pulmonary trunk at least 3 cm. Prominently dilated right ventricle and markedly dilated right atrium and inferior vena cava. No pericardial effusion. Small bilateral pleural effusions. The proximal pulmonary vessels were prominent with pruning, diffuse interstitial fibrosis, hyperinflated lung lay. No localized infiltrate apparently. EKGs: Tracings reviewed independently were described above, showing atrial fibrillation and sinus rhythm with left atrial conduction disturbance and left bundle branch block. Echocardiogram: Findings as described above. Blood work: Blood work this morning showed a hemoglobin of 9.2 and macrocytosis, unchanged from serial studies the past 24 hours. Normal white blood cell counts despite her distress. Normal platelet counts. Arterial blood gas showing evidence of hyperventilation with CO2 down to 24.9 this morning. Arterial blood also showed hypoxia with partial oxygen measuring 51.5. A pH was normal at 7.4. Chemistry this morning showed a mild degree of hyperkalemia with very mild hyponatremia, remarkably normal bicarbonate. Serial BUNs stable in the 40-45 range. Slightly worsening serum creatinine, initially 1.3. This has drifted to 1.6 on her last study at 2 p.m. this afternoon. Serial glucose values were elevated. At 9 this morning it was 341. Serum albumin low at 2.5. Serum calcium values expected to be slightly low. Serum magnesium was normal at 1.8. Liver function studies were otherwise normal. Serial troponin I levels, as mentioned, marginally increased, and markedly elevated proBNP level. IMPRESSION/PLAN: 1. Tachy-yanna syndrome/paroxysmal atrial fibrillation with rapid ventricular response: Somewhat challenging situation with paroxysmal atrial fibrillation related to her mitral valvular heart disease and cor pulmonale. Remarkably rapid ventricular responses documented despite combination antiarrhythmic negative chronotropic therapies. Symptomatic bradyarrhythmia, successfully was resuscitated with IV dobutamine and low-dose dopamine infusions. On enoxaparin, systemic anticoagulation has been free of hemorrhagic complication or thromboembolic event. With her combination advanced medical problems, including dementia, end-stage pulmonary disease, and end-stage cardiac disease with severe pulmonary hypertension, she is not a candidate for invasive intervention that here would be a biventricular implantable cardioverter defibrillator (ICD). The patient has been made DO NOT RESUSCITATE by her family. 2. Paroxysmal atrial fibrillation: For the time being, we have left her on amiodarone 200 mg by mouth four times a day with metoprolol 50 mg by mouth every 6 hours as needed for heart rate faster than 100 BPM. Currently on corrected-dose enoxaparin subcutaneous every 12 hours. 3. Heart failure (systolic and diastolic dysfunction/acute on chronic): Has advanced left ventricular dysfunction. It may well be tachycardia mediated in addition to her left bundle branch block and severe pulmonary hypertension. Currently, hypoxia primarily related to her lung disease. Markedly elevated at proBNP level I suspect is more related to her right heart failure and hypotension prompted by her paroxysmal atrial fibrillation and elevated mean left atrial pressure with her tachyarrhythmia and loss of atrial kick. Currently remains on low-dose dobutamine and dopamine infusion to improve left ventricular systolic function and renal perfusion until her family members arrive to discuss comfort care. 4. Mitral valve disorder (nonrheumatic)/post mitral valve replacement (bioprosthetic): Her echocardiogram demonstrates appropriate function of her prosthetic device. No symptoms or signs of endocarditis. 5. Chronic cor pulmonale/right heart failure: As demonstrated on her chest CT angiogram and echocardiogram, she has severe pulmonary hypertension related to multiple pulmonary issues, including nontreated sleep apnea (related to her dementia and noncompliance), advanced emphysema and bronchiectasis, as well as pulmonary fibrosis, followed by pulmonary medicine and infectious disease. Currently receiving controlled supplemental oxygen, parenteral antibiotic therapy, and bronchodilators with low-dose steroid. As mentioned above, I have spoken quite frankly with her children regarding her advanced/end-stage/non-fixable cardiac and pulmonary conditions. We do not anticipate she will survive this admission. She is currently DO NOT RESUSCITATE/DO NOT INTUBATE, and we await for family to arrive to further discuss comfort care measures. I thank you for allowing me to participate in the care of your patient. I will plan on following her closely with you.
[2019-11-13] MEDS: buPROPion **XL** TABLET 150MG (WELLBUTRIN XL) PO SCH (20:28)
--- NOTE | 2019-11-13 20:46 | CR ---
DATE OF CONSULTATION: 11/13/2019 CHIEF COMPLAINT: Shortness of breath. HISTORY OF PRESENT ILLNESS: Ms. Dumas is a 74-year-old female with a past medical history of chronic obstructive airways disease, thought to be secondary to asthma, as well as a history of bronchiectasis and some pulmonary fibrosis, anxiety, chronic kidney disease (CKD), coronary artery disease (CAD) with a history of myocardial infarction (IN), atrial fibrillation, mitral valve replacement, previous history of Aspergillus and pseudomonas, who was transferred to [facility] from [facility], where she had been admitted for the past few days and was being treated for possible pneumonia as well as atrial fibrillation with rapid ventricular response (RVR) with some demand ischemia. The patient had been reporting symptoms of worsening shortness of breath as well as generalized weakness. She was treated at [facility] with broad-spectrum antibiotics with cefepime but had continued to have shortness of breath as well as persistent hypoxemia requiring nasal cannula oxygen supplementation. After her transfer here to [facility], patient had complained of some midchest heaviness as well as some abdominal discomfort. Patient had a CT angiogram performed to evaluate for possible pulmonary embolism (PE) given her tachycardia and hypoxia. She was also started on Levaquin and continued with her home medications. Fluids were held due to concern for possible fluid overload with her admission CT. Overnight, the patient had gone into atrial fibrillation with rapid ventricular response with heart rate of 140-198. She was complaining also of lightheadedness, shortness of breath, and chest pain. The patient was given amiodarone loading and then started on an amiodarone drip initially. Cardiology was consulted, and the amiodarone drip was discontinued, and the patient was placed on metoprolol and continued with oral amiodarone. The patient's heart rate had improved; however, she then had an episode of bradycardia as well as lightheadedness and dizziness. Her blood pressure had dropped with mean arterial pressure (MAP) below 65, and she was complaining of nausea and some vomiting as well. The patient was started on dobutamine drip as well as dopamine and transferred to intensive care unit (ICU) for further management. The patient was also noted during all of this to require increasing amounts oxygen supplementation and was transferred to the ICU with a non-rebreather. There was some discussion about placing the patient on noninvasive positive pressure ventilation; however, when I saw the patient, she was continuing to have nausea and periodic retching and vomiting. Therefore, she was placed instead on Vapotherm for her hypoxemic respiratory failure with improvement in her oxygenation. The patient had also gone back into sinus rhythm, and her heart rate was controlled. Her blood pressure had also improved with the dobutamine and the dopamine. She was given a dose of Lasix 60 mg IV and had a Ricketts catheter placed. PAST MEDICAL AND SURGICAL HISTORY: 1. Chronic obstructive airways disease, thought to be secondary to asthma with chronic remodeling. 2. Bronchiectasis. 3. 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 4. History of chronic pseudomonas. Was being followed by Dr. Ford. 5. Chronic steroid dependence. 6. Previous history of Aspergillus. 7. CAD with history of IN. 8. Mitral valve replacement. 9. Atrial fibrillation, on anticoagulation. 10. Chronic kidney disease (CKD). 11. Osteopenia. 12. Cervical arthritis. 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 14. Cerebrovascular accident (CVA). 15. Tubal ligation. 16. Cataract surgery. FAMILY HISTORY: Father with a history of lung disease, stroke, hypertension, diabetes. Mother with history of diabetes and hypertension. SOCIAL HISTORY: The patient denies history of tobacco use. No history of alcohol use. HOME MEDICATIONS: Aspirin, Wellbutrin, calcium carbonate HOME MEDICATIONS/MEDICATIONS ON TRANSFER: Cefepime, digoxin, diltiazem, Colace, Lovenox, escitalopram, furosemide, Humalog, metoprolol, multivitamin, pantoprazole, Januvia. ALLERGIES: SULFAMETHOXAZOLE and TRIMETHOPRIM. PHYSICAL EXAMINATION: VITAL SIGNS: Temperature 97.0, pulse 54, blood pressure 92/52, oxygen saturation 96% on Vapotherm at 20 liters a minute with 100% percent FiO2. Input 240, output of 400 mL. GENERAL: The patient is a thin, cachectic female who is sitting in bed, who appears mildly uncomfortable. HEENT: Normocephalic, atraumatic. Pupils are reactive to light bilaterally. Neck is supple. Trachea is midline. No significant jugular venous distention (JVD). Mucous membranes are slightly dry. CARDIOVASCULAR: Regular rate and rhythm with a few premature ventricular contractions (PVCs). Point of maximal impulse (PMI) is displaced laterally. There is a murmur auscultated. PULMONARY: There are crackles noted bilaterally in the bases as well as more in the right mid lung field. There is no significant wheezing or rhonchi noted. ABDOMEN: Soft. There is mild epigastric tenderness. Bowel sounds are diminished. LOWER EXTREMITIES: There is no significant lower extremity edema noted bilaterally. LABORATORY DATA: WBC 9.4, hemoglobin 9.2, platelets are 192. Chemistry sodium is 131, potassium 5.5, chloride is 99, bicarbonate 21, BUN 44, creatinine is 1.59, glucose is 341, calcium of 8.6. INR 1.28. ABG this morning: A pH of 7.408, pCO2 of 24.9, pO2 of 51.5. IMAGING: CT angiography 11/12/2019 showed no evidence of PE. The pulmonary artery appears enlarged, consistent with pulmonary hypertension. There is also cardiomegaly with severe right atrial enlargement as well as right ventricle enlargement and some flattening of the intraventricular septum. There is also the evidence of contrast into the IVC, suggesting right heart failure and pulmonary hypertension. There are small bilateral pleural effusions noted. There is some kyphoscoliosis, and there is some dilation of the esophagus. In the lungs, there is apical scarring bilaterally. There are also chronic changes of fibrosis with honeycombing as well as bronchiectasis, particularly in the right middle lobe as well as in the lingula and in the lower lobes bilaterally. There are also some tree-in-bud reticular and some nodular opacities noted in the right upper lobe posteriorly and the right lower lobe as well as some in the right middle lobe. There are also ventricular nodule and some nodular opacities in the left lower lobe with a larger pleural-based opacity in the left upper lobe. Echo: Normal LV size with paradoxical septal motion due to left bundle branch block as well as right ventricular (RV) pressure overload. The LV systolic pressure is severely impaired with estimated ejection fraction (EF) 10%-.20%. There is moderately dilated left atrium, and there is severe right atrial enlargement as well as right ventricle dilation with RV free wall hypokinesis and severe pulmonary hypertension with dilated pulmonary artery measuring 3 cm and an RV systolic pressure of 68-73 mm of mercury. Dilated inferior vena cava (IVC) with evidence of elevated central venous pressure. There is bioprosthetic mitral valve with mild insufficiency. There is severe tricuspid insufficiency. No pericardial effusions. ASSESSMENT AND PLAN: Ms. Dumas is a 74-year-old female with a past medical history of chronic obstructive disease with asthma, on chronic steroids, bronchiectasis, previous history of BOOP and some pulmonary fibrosis, anxiety, history of pseudomonas and Aspergillus in the past, CKD, CAD with history of IN, atrial fibrillation, on Coumadin, mitral valve replacement, who was transferred here from [facility] after being treated and admitted for possible pneumonia as well as atrial fibrillation with rapid ventricular rate and demand ischemia. The patient was started initially on Levaquin after being transferred here. She had no fevers and no leukocytosis, and her previous sputum culture at [facility] was negative for pseudomonas or other bacterial organisms. She did have workup done for other community-acquired pneumonia, which is still pending. Her methicillin-resistant Staphylococcus aureus (MRSA) screen was negative. The patient also had a CT angiogram done, which was reviewed with the hospitalist. She did not have any evidence of PE, and there was mostly chronic changes in the lung with bronchiectasis and some fibrosis and honeycombing. There were also some tree-in-bud and more nodular opacities which, without previous imaging it is unclear if some of this is chronic as well given her history in the past of Aspergillus as well as a previous history of Mycobacterium avium complex (MAC). Of note, she does have evidence of small bilateral pleural effusions, and on her CT she did have an enlarged pulmonary artery as well as a dilated IVC with contrast reflux of IVC consistent with pulmonary hypertension and right heart failure. The patient's brain natriuretic peptide (BNP) was also significantly elevated on admission, some of which is likely chronic given her pulmonary hypertension. Overnight the patient has done into the atrial fibrillation with rapid ventricular response. She also had worsening hypoxic respiratory failure and required increasing amounts of oxygen supplementation. Cardiology was consulted, and she was given amiodarone as well as a beta mila with some improvement in her heart rate. She was also hypotensive, however, and required administration of dobutamine and dopamine. The patient's echocardiogram on this admission did show evidence of severe pulmonary hypertension as well as right-sided heart failure with some paradoxical septal motion, consistent with RV pressure overload impacting the left ventricle. She also has systolic heart failure as well with an EF severely reduced in 10%-20%. The patient is in decompensated heart failure as well as cardiogenic shock. She does have a lactic acidosis, which is thought to be a likely secondary to her cardiogenic shock than from sepsis at this time. - Can continue Levaquin for antibiotics and followup repeat sputum culture as well as the testing for streptococcal pneumonia and Legionella. She did have Aspergillus galactomannan antigen testing done. The patient did already receive 5 days of cefepime, and suspect that if she did have a pneumonia initially on admission, that it has been adequately treated. Given her history of pseudomonas and likely some colonization, however, can continue the Levaquin for now. - We will start the patient on nebulized medication for her history of asthma with Pulmicort and Perforomist. Will also continue her chronic prednisone of 5 mg daily. - The patient was initially started on hypertonic saline nebulizers and Acapella given her history of bronchiectasis. Given her atrial fibrillation, however, will discontinue the hypertonic saline nebulizers and change her DuoNebs from standing to as needed, as she does appear to have any significant wheezing or rhonchi on exam. She can continue with Acapella as needed. - Will continue her with Vapotherm for oxygen supplementation and will titrate to maintain an oxygen saturation above 95%. Given her severe pulmonary hypertension, hypoxia is to be avoided as much as possible to help with preventing further pulmonary vasoconstriction and worsening of her pulmonary hypertension. - Appreciate cardiology consult recommendations. They are continuing with dobutamine and dopamine and titrating as per cardiology. She is also being continued on rate-control medications as per cardiology for her atrial fibrillation. Given her severe pulmonary hypertension and evidence of some RV pressure overload, she may benefit from gentle diuresis. She did receive 60 mg of IV Lasix; however, will continue with diuretics as per cardiology recommendations. - Would continue with supportive measures in terms of symptom management for her nausea as well as her anxiety and pain. There was a lengthy discussion with the patient's son about her goals of care, and given her severe end-stage heart disease as well as lung disease, the patient was made DO NOT RESUSCITATE/DO NOT INTUBATE. She did previously have a DO NOT RESUSCITATE/DO NOT INTUBATE in place, which apparently was reversed with her recent hospitalization at [facility]. Given her chronic issues as well as her current presentation and poor prognosis, however, a decision was made for the DO NOT RESUSCITATE/DO NOT INTUBATE now as well as some consideration for comfort measures only. Deep vein thrombosis (DVT) prophylaxis. The patient on anticoagulation with Lovenox. CODE STATUS: DO NOT RESUSCITATE/DO NOT INTUBATE. MTDD
[2019-11-14] VITALS (21 sets, daily range): BP systolic 94–123; BP diastolic 53–72; O2SAT 97
[2019-11-14] MEDS: METOPROLOL TART 50 MG TAB PO SCH ×4 (02:00→20:00)
[2019-11-14] MEDS: ONDANSETRON 4MG/2ML VIAL IV SCH ×2 (06:04→12:00)
[2019-11-14 06:30] LABS: INR 1.23; PROTHROMBIN TIME 15.2 SECONDS (11.8-14.0)
[2019-11-14 07:41] LABS: BASO % 0.2 % (0.0-1.0); EOS % 0.4 % (0.0-3.0); HEMATOCRIT 25.7 % (36.0-47.0); HEMOGLOBIN 8.6 g/dl (12.0-15.5); LYMPH # 0.7 10^3/uL (1.5-5.0); LYMPH % 15.3 % (24.0-44.0); MEAN CORPUSCULAR HEMOGLOBIN 32.3 pg (27.0-33.0); MEAN CORPUSCULAR HGB CONC 33.5 g/dl (32.0-36.5); MEAN CORPUSCULAR VOLUME 96.6 fl (80.0-96.0); MONO # 0.4 10^3/uL (0.0-0.8); MONO % 8.4 % (0.0-5.0); NEUTROPHILS # 3.4 10^3/uL (1.5-8.5); NEUTROPHILS % 74.4 % (36.0-66.0); PLATELET COUNT, AUTOMATED 161 10^3/uL (150-450); RED BLOOD COUNT 2.66 10^6/uL (4.00-5.40); WHITE BLOOD COUNT 4.6 10^3/uL (4.0-10.0)
[2019-11-14 07:47] LABS: ALBUMIN 2.6 GM/DL (3.2-5.2); BILIRUBIN,TOTAL 0.3 MG/DL (0.2-1.0); CALCIUM LEVEL 8.5 MG/DL (8.8-10.2); CREATININE FOR GFR 1.46 MG/DL (0.55-1.30); GLOMERULAR FILTRATION RATE 37.5 (>39); MAGNESIUM LEVEL 1.9 MG/DL (1.8-2.4); POTASSIUM SERUM 4.9 MEQ/L (3.5-5.1); TOTAL PROTEIN 6.1 GM/DL (6.4-8.2)
[2019-11-14] MEDS: FORMOTEROL FUMARATE 20 MCG/2 ML INHALATION SOLUTION (PERFOROMIST) INH SCH ×2 (08:31→20:47)
[2019-11-14] MEDS: BUDESONIDE 0.5 MG/2 ML INHALATION SUSPENSION INH SCH ×2 (08:31→20:47)
[2019-11-14] MEDS: DOCUSATE SODIUM 100 MG CAP PO SCH (08:50)
[2019-11-14] MEDS: ENOXAPARIN 30MG/0.3ML SYRINGE (J1650 PER 10MG) SC SCH ×2 (08:50→20:29)
[2019-11-14] MEDS: PANTOPRAZOLE 40MG TAB (PROTONIX) PO SCH (08:50)
[2019-11-14] MEDS: AMIODARONE 200 MG TAB (PACERONE) PO SCH (08:50)
[2019-11-14] MEDS: ASPIRIN 81 MG ENTERIC TAB PO SCH (08:50)
[2019-11-14] MEDS: predniSONE 5 MG TAB PO SCH (08:50)
[2019-11-14] MEDS: ESCITALOPRAM OXALATE 10 MG TAB (LEXAPRO) PO SCH (08:50)
--- NOTE | 2019-11-14 10:08 | REP ---
CT PULMONARY ANGIOGRAM: With IV contrast. HISTORY: Rule out pulmonary embolus. Preliminary report is provided at the time of the exam by Dr. Alejandro. COMPARISON STUDIES: No comparison study CONTRAST DOSE: 75 mL of Isovue [address] TECHNIQUE: Helical scanning is acquired and overlapping 1.5 mm and contiguous 3 mm axial images are reformatted. In addition, maximum intensity projection and multiplanar re-formation images are generated in sagittal and coronal imaging projections. CT PULMONARY ANGIOGRAPHIC FINDINGS: There is good opacification in the pulmonary arterial tree. No filling defect or vessel cutoff is seen to suggest pulmonary embolism. There is a mitral valve prosthesis in place. Four-chamber cardiac enlargement is observed. There are small bilateral pleural effusions. No pericardial effusion is seen. No hilar or mediastinal mass or adenopathy is observed. There are areas of honeycombing and fibrosis in the bases bilaterally. Peripheral subpleural fibrosis changes are noted. There is a small cyst in the right lobe of the liver. No adrenal lesion is seen. There are scattered areas of vascular calcification. No bony destructive lesion. IMPRESSION: Advanced COPD with scattered areas of honeycombing. Four-chamber cardiomegaly. No pleural effusion seen. Bilateral effusions. Electronically Signed by Gary Tipton MD 11/14/2019 11:03 A
--- NOTE | 2019-11-14 13:03 | IPNPDOC ---
Text Note Date of Service The patient was seen on 11/14/19. NOTE Subjective: No any acute events overnight, patient continues to be on the dop amine and dobutamine ggt, she is in sinus rhythm, blood pressure stable. Patient seems to be more alert. Objective: GENERAL: NAD HEENT: Plus JVD, PERRLA CARDIOVASCULAR: irregularly irregular rhythm, S1-S2 RESPIRATORY: Bilateral crackles ABDOMINAL: , soft, nontender, nondistended, no organomegaly EXTREMITIES: +2 pitting edema NEUROLOGICAL: Mildly confused, forgetful, cranial nerves from 2-12 intact Assessment and plan: Patient is 74 years old female with past medical history of COPD with bron chiectasis, asthma, anxiety, chronic kidney diseases, HI, A. fib on Coumadin, mitral valve replacement with mechanical valve. Pseudomonas pneumonia was transferred to [facility] from [facility] we she was diagnosed with community-acquired pneumonia, atrial fibrillation with rapid ventricular rate and elevated troponin. Patient stated that for past 3 days has been having increased shortness of breath, associated with generalized weakness. In his [facility] patient was found elevated troponin to 0.1, blood culture was negative, no leukocytosis. CT chest was done and showed diffuse emphysema, pulmonary fibrosis, right upper lobe predominance likely secondary to pneumonia. Stool for blood was positive. During hospital stay patient developed atrial fibrillation with rapid ventricular rate treated with amiodarone and beta blockers, developed hypotension and bradycardia requiring pressor support. Also patient was found have a pulmonary hypertension with ejection fraction of 10%. After lengthy discussion with her sons the CODE STATUS was changed to DNR/DNI. Overall prognosis guarded due to multiple comorbidities including advanced COPD bronchiectasis and pulmonary fibrosis superimposed with pneumonia and acute combined systolic and diastolic CHF. Patient currently is on vasopressors. The family will make decision about SUPERVISOR WEAVING when her son who lives in [place] will come to the hospital. Problems (1) Sepsis 2/[address] showed RL lung infiltrate. Pt has elevated LA, tachycardia and dyspnea hold Iv fluid given bilateral pleural effusion, pulmonary hypertension and right heart strain Bcx negative Await sputum cx Levofloxacin IV Mrsa screen negative (2) Pneumonia Patient has a history of advanced COPD with bronchiectasis complicated by as pergillosis Patient recently had Pseudomonas pneumonia CTA was negative for PE, showed bilateral pulmonary effusion with pulmonary fibrosis right lower lobe infiltrate and right heart strain, official report pending. Levofloxacin IV Incentive spirometry Inhalers (3) Chest pain Resolved for now (4) Atrial fibrillation Heart rate currently is under control, patient continues to be on the dopamine and dobutamine drip. Echo showed 10% ejection fraction with severe pulmonary hypertension director of employer services team follows her (5) Cachexia Patient has muscle wasting, low albumin High-protein diet Follow social and political studies professor assessment Acute CHF Combined systolic and diastolic Ejection fraction 10% with severe pulmonary hypertension Continue dopamine and dobutamine drip Morphine for dyspnea Plan / VTE VTE Prophylaxis Ordered?: Yes VS,Amrik, I+O VS, Amrik, I+O Laboratory Tests 11/13/19 13:58 11/14/19 05:58 Vital Signs Date Time Temp Pulse Resp B/P (MAP) Pulse Ox O2 Delivery O2 Flow Rate FiO2 11/14/19 09:15 100 HVNI-Vapotherm 25.0 75 11/14/19 08:00 98.6 72 20 104/67 (79) I&O- Last 24 Hours up to 6 AM 11/14/19 06:00 Intake Total 1205.8 ml Output Total 1505 ml Balance -299.2 ml LA LEGER DO November 14, 2019 13:03
--- NOTE | 2019-11-14 15:43 | IPN ---
DATE: 11/14/2019 PULMONARY PROGRESS NOTE: The patient was seen, examined this morning during bedside rounds. The patient's blood pressure has improved with dobutamine and dopamine. She appears this morning to be more alert as well as more comfortable. She does feel her breathing has improved as well as the chest heaviness that she was complaining of previously. The patient is on Vapotherm still and was on 100% overnight. She is saturating well, however. So, we will wean down on the FiO2 as tolerated. PHYSICAL EXAMINATION: Vital Signs: Temperature 97.9, pulse 68, respirations 20, blood pressure 108/60, oxygen saturation 100% on Vapotherm at 100% FiO2. Ins 1.1 liter, out 1.5 liter. General: The patient is a thin, cachectic female who is sitting in bed and appears more comfortable in no acute distress. HEENT: Normocephalic, atraumatic. Pupils react to light bilaterally. Neck: Supple. Trachea is midline. Mucous membranes are moist. Cardiovascular: Regular rate and rhythm with premature ventricular contractions (PVCs). Point of maximum impulse (PMI) displaced laterally. There is a faint murmur auscultated. Pulmonary: There are crackles noted bilaterally in the bases as well as few rhonchi noted today. Abdomen: Is soft. Mild epigastric tenderness although improved. Bowel sounds are present but diminished. Lower extremities: There is no significant lower extremity noted bilaterally. LABORATORY DATA: WBC 4.6, hemoglobin 8.6, platelets are 161. Chemistry: Sodium 131, potassium 4.9 chloride 99, bicarbonate 26, BUN 42, creatinine 1.46, glucose 168, calcium 8.5, magnesium 1.6, albumin 2.6. INR 1.23. ASSESSMENT AND PLAN: Ms. Dumas is a 74-year-old female with a history of chronic obstructive pulmonary disease (COPD) with asthma on chronic steroids, bronchiectasis, previous history of bronchiolitis obliterans organizing pneumonia (BOOP) and pulmonary fibrosis, anxiety, history of Pseudomonas and Aspergillus, chronic kidney disease (CKD), cerebrovascular accident (CAD) with history of myocardial infarction (TN), atrial fibrillation on anticoagulation, mitral valve replacement, who was transferred from [facility] after being treated, admitted for possible pneumonia as well as atrial fibrillation with rapid ventricular response (RVR) with some component of demand ischemia. The patient was found on this admission CT to show mostly chronic changes of the lungs with fibrosis and honeycombing as well as small bilateral pleural effusions. She also had evidence on CT of pulmonary hypertension and right heart failure with a dilated inferior vena cava (IVC) with the contrast reflux into the IVC. The patient also had gone into atrial fibrillation with rapid ventricular response with worsening hypoxemic respiratory failure as well as hypotension. The patient was thought to have a component of cardiogenic shock and cardiology was consulted and she was started on dobutamine and dopamine in the intensive care unit (ICU). 1. Acute on chronic hypoxemic respiratory failure with history of chronic obstructive airways disease. 2. Acute on chronic biventricular heart failure with severe pulmonary hypertension. 3. History of bronchiectasis with previous Aspergillus, atypical mycobacterial disease and Pseudomonas. 4. History of severe sleep apnea noncompliant with continuous positive airway pressure (CPAP). Plan: - The patient can be managed by cardiology for her acute on chronic decompensated heart failure and cardiogenic shock with dobutamine and dopamine. They will also be managing her diuretics and rate-control medications as needed. She does have a history of tachybrady syndrome and was in atrial fibrillation with RVR requiring multiple medications for rate control. - The patient is on Levaquin currently, however suspect most of the changes on CT are chronic and her previous sputum culture at the outside hospital was negative for Pseudomonas. She also had received 5 days of cefepime and suspect that she likely has already been adequately treated. Would followup repeat sputum culture but would consider discontinuation of Levaquin. She does not have any leukocytosis currently or fever. - Continue the patient on maintenance nebulized medications with Pulmicort and Perforomist as well as chronic prednisone 5 mg daily. - Continue with DuoNebs and Acapella device for mucous clearance. - Continue oxygen supplementation with Vapotherm and will titrate down FiO2 as tolerated to maintain an oxygen saturation above 92%. Patient can be transitioned to nasal cannula oxygen if tolerating weaning on Vapotherm Deep venous thrombosis (DVT) prophylaxis, patient on anticoagulation with Lovenox. CODE STATUS: DO NOT RESUSCITATE/DO NOT INTUBATE. The family has been in discussion of possible comfort measures only given her end-stage cardiac and pulmonary disease. Please do not hesitate to call if any further questions or concerns. SANDI
[2019-11-14] MEDS ORDERED: ONDANSETRON 4MG/2ML VIAL IV PRN (15:45)
[2019-11-14] MEDS: LevoFLOXacin IV 750 MG in IV 1 EA IV SCH (17:32)
--- NOTE | 2019-11-14 18:41 | ECGEPIP ---
[facility] Test Date: 2019-11-12 Pat Name: PAGE LUZ Department: Room: [place] [address] Gender: Female Esthetician Facialist: DILLON GRISSOMB: 1945 Requested By: LA LEGER Order Number: [id number] Reading MD: Dorian Dickson Measurements Intervals Jarratt Rate: 151 P: MO: 0 QRS: -42 QRSD: 145 T: 168 QT: 298 QTc: 473 Interpretive Statements Recurrent atrial fibrillation with rapid ventricular response Left axis deviation and left bundle branch block Rhythm change from earlier the same day Electronically Signed on 11-14-2019 18:40:34 EDT by Dorian Dickson
[2019-11-14] MEDS: buPROPion **XL** TABLET 150MG (WELLBUTRIN XL) PO SCH (20:29)
[2019-11-15] VITALS (12 sets, daily range): BP systolic 106–131; BP diastolic 60–78
[2019-11-15] MEDS: METOPROLOL TART 50 MG TAB PO SCH ×4 (02:00→21:22)
[2019-11-15] MEDS: DOBUTamine HCL 500,000 MCG in IV 1 EA IV SCH (05:06)
[2019-11-15 06:34] LABS: INR 1.23; PROTHROMBIN TIME 15.2 SECONDS (11.8-14.0)
[2019-11-15 07:45] LABS: BASO % 0.2 % (0.0-1.0); EOS % 0.5 % (0.0-3.0); HEMATOCRIT 27.7 % (36.0-47.0); HEMOGLOBIN 8.9 g/dl (12.0-15.5); LYMPH # 0.8 10^3/uL (1.5-5.0); LYMPH % 18.3 % (24.0-44.0); MEAN CORPUSCULAR HEMOGLOBIN 32.5 pg (27.0-33.0); MEAN CORPUSCULAR HGB CONC 32.1 g/dl (32.0-36.5); MEAN CORPUSCULAR VOLUME 101.1 fl (80.0-96.0); MONO # 0.3 10^3/uL (0.0-0.8); MONO % 7.8 % (0.0-5.0); NEUTROPHILS % 72.2 % (36.0-66.0); PLATELET COUNT, AUTOMATED 216 10^3/uL (150-450); RED BLOOD COUNT 2.74 10^6/uL (4.00-5.40); WHITE BLOOD COUNT 4.1 10^3/uL (4.0-10.0)
[2019-11-15] MEDS: FORMOTEROL FUMARATE 20 MCG/2 ML INHALATION SOLUTION (PERFOROMIST) INH SCH ×2 (07:46→18:36)
[2019-11-15] MEDS: BUDESONIDE 0.5 MG/2 ML INHALATION SUSPENSION INH SCH ×2 (07:46→18:36)
[2019-11-15 07:55] LABS: ALBUMIN 2.7 GM/DL (3.2-5.2); BILIRUBIN,TOTAL 0.6 MG/DL (0.2-1.0); CALCIUM LEVEL 8.4 MG/DL (8.8-10.2); CREATININE FOR GFR 1.15 MG/DL (0.55-1.30); GLOMERULAR FILTRATION RATE 49.4 (>39); MAGNESIUM LEVEL 1.8 MG/DL (1.8-2.4); POTASSIUM SERUM 4.6 MEQ/L (3.5-5.1); TOTAL PROTEIN 6.4 GM/DL (6.4-8.2)
[2019-11-15] MEDS: DOCUSATE SODIUM 100 MG CAP PO SCH (09:00)
[2019-11-15] MEDS: PANTOPRAZOLE 40MG TAB (PROTONIX) PO SCH (10:10)
[2019-11-15] MEDS: FUROSEMIDE 20 MG TAB PO SCH (10:11)
[2019-11-15] MEDS: ASPIRIN 81 MG ENTERIC TAB PO SCH (10:11)
[2019-11-15] MEDS: ESCITALOPRAM OXALATE 10 MG TAB (LEXAPRO) PO SCH (10:11)
[2019-11-15] MEDS: AMIODARONE 200 MG TAB (PACERONE) PO SCH (10:11)
[2019-11-15] MEDS: ENOXAPARIN 30MG/0.3ML SYRINGE (J1650 PER 10MG) SC SCH ×2 (10:12→21:22)
[2019-11-15] MEDS: predniSONE 5 MG TAB PO SCH (10:12)
--- NOTE | 2019-11-15 12:26 | IPNPDOC ---
Text Note Date of Service The patient was seen on 11/15/19. NOTE Subjective: No any acute events overnight, patient continues to be on the dopamine and dobutamine ggt overnight, she is in sinus rhythm, blood pressure has been stable. I discussed with her son Wilver follow up with hospice care. Patient stated that she wants to go home and would rather has hospice at home because of her dogs. Objective: GENERAL: NAD HEENT: Plus JVD, PERRLA CARDIOVASCULAR: irregularly irregular rhythm, S1-S2 RESPIRATORY: Bilateral crackles, diminished lung sounds ABDOMINAL: , soft, nontender, nondistended, no organomegaly EXTREMITIES: +2 pitting edema NEUROLOGICAL: Awake, alert, nonfocal, cranial nerves from 2-12 intact Assessment and plan: Patient is 74 years old female with past medical history of COPD with bronchiectasis, asthma, anxiety, chronic kidney diseases, [place], A. fib on Coumadin, mitral valve replacement with mechanical valve. Pseudomonas pneumonia was transferred to [facility] from [facility] we she was diagnosed with community-acquired pneumonia, atrial fibrillation with rapid ventricular rate and elevated troponin. Patient stated that for past 3 days has been having increased shortness of breath, associated with generalized weakness. In his [facility] patient was found elevated troponin to 0.1, blood culture was negative, no leukocytosis. CT chest was done and showed diffuse emphysema, pulmonary fibrosis, right upper lobe predominance likely secondary to pneumonia. Stool for blood was positive. During hospital stay patient developed atrial fibrillation with rapid ventricular rate treated with amiodarone and beta blockers, developed hypotension and bradycardia requiring pressor support. Also patient was found have a pulmonary hypertension with ejection fraction of 10%. After lengthy discussion with her sons the CODE STATUS was changed to DNR/DNI. Overall prognosis guarded due to multiple comorbidities including advanced COPD bronchiectasis and pulmonary fibrosis superimposed with pneumonia and acute combined systolic and diastolic CHF. Patient currently is on vasopressors. The family will make decision about TREE PLANTER when her son who lives in [place] will come to the hospital. On 12/16/19 dopamine GGT was discontinued. Hospice care consult was placed. Most likely patient will be discharged of the hospice at home set up. Problems (1) Sepsis 2/[address] showed RL lung infiltrate. 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 Levofloxacin IV Incentive spirometry Inhalers (3) Chest pain Resolved for now (4) Atrial fibrillation Heart rate currently is under control, patient continues to be on the dopamine and dobutamine drip. Echo showed 10% ejection fraction with severe pulmonary hypertension public health social worker team follows her (5) Cachexia Patient has muscle wasting, low albumin High-protein diet Follow security system analyst assessment Acute CHF Combined systolic and diastolic Ejection fraction 10% with severe pulmonary hypertension DC dopamine and continue dobutamine drip Morphine for dyspnea Acute respiratory failure Resolved. Patient breathing on the room air Plan / VTE VTE Prophylaxis Ordered?: Yes VS,Fishbone, I+O VS, Fishbone, I+O Laboratory Tests 11/15/19 05:47 Vital Signs Date Time Temp Pulse Resp B/P (MAP) Pulse Ox O2 Delivery O2 Flow Rate FiO2 11/15/19 08:00 98.1 91 20 131/76 (94) 99 Room Air 11/14/19 20:00 2.0 11/14/19 15:00 30 I&O- Last 24 Hours up to 6 AM 11/15/19 06:00 Intake Total 1034.0 ml Output Total 1895 ml Balance -861.0 ml LA LEGER DO November 15, 2019 12:26
[2019-11-15] MEDS: buPROPion **XL** TABLET 150MG (WELLBUTRIN XL) PO SCH (21:22)
[2019-11-15] MEDS ORDERED: AMIODARONE HCL 150 MG in IV 1 EA IV STA (22:57)
[2019-11-16] VITALS: BP 132/70
[2019-11-16] MEDS: METOPROLOL TART 50 MG TAB PO SCH ×4 (02:00→20:00)
[2019-11-16 04:00] VITALS: BP 126/62
[2019-11-16 06:21] LABS: HEMATOCRIT 27.9 % (36.0-47.0); HEMOGLOBIN 8.8 g/dl (12.0-15.5); MEAN CORPUSCULAR HGB CONC 31.5 g/dl (32.0-36.5); MEAN CORPUSCULAR VOLUME 101.5 fl (80.0-96.0); PLATELET COUNT, AUTOMATED 226 10^3/uL (150-450); RED BLOOD COUNT 2.75 10^6/uL (4.00-5.40)
[2019-11-16 06:32] LABS: INR 1.08; PROTHROMBIN TIME 13.7 SECONDS (11.8-14.0)
[2019-11-16] MEDS: BUDESONIDE 0.5 MG/2 ML INHALATION SUSPENSION INH SCH ×2 (07:12→20:16)
[2019-11-16] MEDS: FORMOTEROL FUMARATE 20 MCG/2 ML INHALATION SOLUTION (PERFOROMIST) INH SCH ×2 (07:12→20:00)
[2019-11-16] MEDS ORDERED: METOPROLOL 5 MG/5 ML VIAL IV PRN (07:30)
[2019-11-16] MEDS ORDERED: METOPROLOL 5 MG/5 ML VIAL IV STA (07:30)
[2019-11-16 08:00] VITALS: BP 108/73
[2019-11-16 08:01] VITALS: BP 88/58
[2019-11-16] MEDS: ESCITALOPRAM OXALATE 10 MG TAB (LEXAPRO) PO SCH (08:48)
[2019-11-16] MEDS: ENOXAPARIN 30MG/0.3ML SYRINGE (J1650 PER 10MG) SC SCH (08:48)
[2019-11-16] MEDS: ASPIRIN 81 MG ENTERIC TAB PO SCH (08:48)
[2019-11-16] MEDS: PANTOPRAZOLE 40MG TAB (PROTONIX) PO SCH (08:48)
[2019-11-16] MEDS: predniSONE 5 MG TAB PO SCH (08:49)
[2019-11-16] MEDS: AMIODARONE 200 MG TAB (PACERONE) PO SCH (08:49)
[2019-11-16] MEDS: DOCUSATE SODIUM 100 MG CAP PO SCH (08:49)
[2019-11-16] MEDS: FUROSEMIDE 20 MG TAB PO SCH (09:00)
[2019-11-16 12:00] VITALS: BP 105/58
--- NOTE | 2019-11-16 12:09 | IPNPDOC ---
Text Note Date of Service The patient was seen on 11/16/19. NOTE Subjective: No any acute events overnight. In the morning patient developed atrial fibrillation with rapid ventricular rate of 130 converted to sinus rhythm after IV Lopressor and metoprolol. Objective: GENERAL: NAD HEENT: Plus JVD, PERRLA CARDIOVASCULAR: irregularly irregular rhythm, S1-S2 RESPIRATORY: Bilateral crackles, diminished lung sounds ABDOMINAL: , soft, nontender, nondistended, no organomegaly EXTREMITIES: +2 pitting edema NEUROLOGICAL: Awake, alert, nonfocal, cranial nerves from 2-12 intact Assessment and plan: Patient is 74 years old female with past medical history of COPD with bronchiectasis, asthma, anxiety, chronic kidney diseases, [place], A. fib on Coumadin, mitral valve replacement with mechanical valve. Pseudomonas pneumonia was transferred to [facility] from [facility] we she was diagnosed with community-acquired pneumonia, atrial fibrillation with rapid ventricular rate and elevated troponin. Patient stated that for past 3 days has been having increased shortness of breath, associated with generalized weakness. In his [facility] patient was found elevated troponin to 0.1, blood culture was negative, no leukocytosis. CT chest was done and showed diffuse emphysema, pulmonary fibrosis, right upper lobe predominance likely secondary to pneumonia. Stool for blood was positive. During hospital stay patient developed atrial fibrillation with rapid ventricular rate treated with amiodarone and beta blockers, developed hypotension and bradycardia requiring pressor support. Also patient was found have a pulmonary hypertension with ejection fraction of 10%. After lengthy discussion with her sons the CODE STATUS was changed to DNR/DNI. Overall prognosis guarded due to multiple comorbidities including advanced COPD bronchiectasis and pulmonary fibrosis superimposed with pneumonia and acute combined systolic and diastolic CHF. Patient currently is on vasopressors. 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 On 12/16/19 dopamine GGT was discontinued. Hospice care consult was placed. Most likely patient will be discharged to [facility] at home. Problems (1) Sepsis Resolved 2/[address] showed RL lung infiltrate. 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 Four-chamber cardiomegaly. Bilateral effusions. 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 Patient breathing on the room air VS,Fishbone, I+O VS, Fishbone, I+O Laboratory Tests 11/16/19 06:04 Vital Signs Date Time Temp Pulse Resp B/P (MAP) Pulse Ox O2 Delivery O2 Flow Rate FiO2 11/16/19 08:01 134 88/58 (68) 11/16/19 08:00 97.7 18 97 Room Air 11/14/19 20:00 2.0 11/14/19 15:00 30 I&O- Last 24 Hours up to 6 AM 11/16/19 06:00 Intake Total 1565.0 ml Output Total 2050 ml Balance -485.0 ml LA LEGER DO November 16, 2019 12:09
[2019-11-16] MEDS: DOBUTamine HCL 500,000 MCG in IV 1 EA IV SCH (14:24)
[2019-11-16 15:13] LABS: BODY FLUID CULTURE Not indicated. (.); LEGIONELLA ANTIGEN URINE Negative (Negative); ORGANISM ID Not indicated. (.); SPECIMEN SOURCE Urine (.); URINE STREP PNEUMONIAE ANTIGEN Negative (Negative)
[2019-11-16 16:00] VITALS: BP 127/63
[2019-11-16] MEDS ORDERED: MORPHINE 2 MG/ML 1ML VIAL (J2270) IV PRN (19:30)
[2019-11-16] MEDS ORDERED: SCOPOLAMINE 1MG TRANSDERMAL PATCH TOP PRN (19:30)
[2019-11-16] MEDS ORDERED: LORazepam 1 MG TAB PO PRN (19:30)
[2019-11-16] MEDS ORDERED: HYOSCYAMINE SULFATE 0.125 MG SUBL TABLET PO PRN (19:30)
[2019-11-16] MEDS ORDERED: ONDANSETRON 4MG/2ML VIAL IV PRN (19:30)
[2019-11-16] MEDS ORDERED: MORPHINE 10MG/0.5ML ORAL CONCENTRATE SOLUTION U/D SL PRN (19:30)
[2019-11-16] MEDS ORDERED: FLEET ENEMA PR PRN (19:30)
[2019-11-16] MEDS ORDERED: BISACODYL 10 MG SUPP PR PRN (19:30)
[2019-11-16] MEDS: buPROPion **XL** TABLET 150MG (WELLBUTRIN XL) PO SCH (20:21)
[2019-11-17] MEDS: METOPROLOL TART 50 MG TAB PO SCH ×4 (02:00→21:08)
[2019-11-17] MEDS: BUDESONIDE 0.5 MG/2 ML INHALATION SUSPENSION INH SCH ×2 (07:53→19:16)
[2019-11-17] MEDS: FORMOTEROL FUMARATE 20 MCG/2 ML INHALATION SOLUTION (PERFOROMIST) INH SCH ×2 (07:53→19:16)
[2019-11-17] MEDS: ESCITALOPRAM OXALATE 10 MG TAB (LEXAPRO) PO SCH (10:13)
[2019-11-17] MEDS: ASPIRIN 81 MG ENTERIC TAB PO SCH (10:13)
[2019-11-17] MEDS: PANTOPRAZOLE 40MG TAB (PROTONIX) PO SCH (10:13)
[2019-11-17] MEDS: DOCUSATE SODIUM 100 MG CAP PO SCH (10:13)
[2019-11-17] MEDS: predniSONE 5 MG TAB PO SCH (10:13)
[2019-11-17] MEDS: buPROPion **XL** TABLET 150MG (WELLBUTRIN XL) PO SCH (21:08)
--- NOTE | 2019-11-17 21:58 | ECGEPIP ---
[facility] Test Date: 2019-11-15 Pat Name: PAGE LUZ Department: Room: [place] [address] Gender: Female Newspaper Columnist: FILIPPO : [id number] Requested By: BHUMIKA JIMÉNEZ D.O. Order Number: [id number] Reading MD: Mika Blas Measurements Intervals [place] Rate: 131 P: MS: 0 QRS: -55 QRSD: 151 T: 41 QT: 328 QTc: 486 Interpretive Statements ATRIAL FIBRILLATION WITH RAPID VENTRICULAR RESPONSE MARKED LEFT AXIS DEVIATION LEFT BUNDLE BRANCH BLOCK Increased heart rate and rhythm change compared with 11/13/2019. Electronically Signed on 11-17-2019 21:58:08 EDT by Mika Blas
[2019-11-17] MEDS: POLYSPORIN TOPICAL OINTMENT 15GM TOP SCH (22:23)
[2019-11-18] MEDS: METOPROLOL TART 50 MG TAB PO SCH ×4 (02:00→20:00)
[2019-11-18] MEDS: BUDESONIDE 0.5 MG/2 ML INHALATION SUSPENSION INH SCH ×2 (07:54→19:45)
[2019-11-18] MEDS: FORMOTEROL FUMARATE 20 MCG/2 ML INHALATION SOLUTION (PERFOROMIST) INH SCH ×2 (07:54→19:45)
[2019-11-18] MEDS: PANTOPRAZOLE 40MG TAB (PROTONIX) PO SCH (08:28)
[2019-11-18] MEDS: ASPIRIN 81 MG ENTERIC TAB PO SCH (08:28)
[2019-11-18] MEDS: predniSONE 5 MG TAB PO SCH (08:28)
[2019-11-18] MEDS: DOCUSATE SODIUM 100 MG CAP PO SCH (08:28)
[2019-11-18] MEDS: ESCITALOPRAM OXALATE 10 MG TAB (LEXAPRO) PO SCH (08:28)
[2019-11-18] MEDS: POLYSPORIN TOPICAL OINTMENT 15GM TOP SCH ×2 (08:30→20:09)
[2019-11-18] MEDS: buPROPion **XL** TABLET 150MG (WELLBUTRIN XL) PO SCH (20:09)
[2019-11-19] MEDS: METOPROLOL TART 50 MG TAB PO SCH ×4 (02:00→20:00)
[2019-11-19] MEDS: FORMOTEROL FUMARATE 20 MCG/2 ML INHALATION SOLUTION (PERFOROMIST) INH SCH ×2 (07:26→20:31)
[2019-11-19] MEDS: BUDESONIDE 0.5 MG/2 ML INHALATION SUSPENSION INH SCH ×2 (07:26→20:31)
[2019-11-19] MEDS: predniSONE 5 MG TAB PO SCH (09:50)
[2019-11-19] MEDS: ASPIRIN 81 MG ENTERIC TAB PO SCH (09:50)
[2019-11-19] MEDS: POLYSPORIN TOPICAL OINTMENT 15GM TOP SCH ×2 (09:50→21:36)
[2019-11-19] MEDS: PANTOPRAZOLE 40MG TAB (PROTONIX) PO SCH (09:50)
[2019-11-19] MEDS: DOCUSATE SODIUM 100 MG CAP PO SCH (09:50)
[2019-11-19] MEDS: ESCITALOPRAM OXALATE 10 MG TAB (LEXAPRO) PO SCH (09:50)
[2019-11-19] MEDS: buPROPion **XL** TABLET 150MG (WELLBUTRIN XL) PO SCH (21:35)
[2019-11-20] MEDS: METOPROLOL TART 50 MG TAB PO SCH ×4 (02:54→20:00)
[2019-11-20] MEDS: ACETAMINOPHEN TAB 650MG DOSE (2X325MG) PO PRN (03:00)
[2019-11-20] MEDS: BUDESONIDE 0.5 MG/2 ML INHALATION SUSPENSION INH SCH ×2 (07:11→18:20)
[2019-11-20] MEDS: FORMOTEROL FUMARATE 20 MCG/2 ML INHALATION SOLUTION (PERFOROMIST) INH SCH ×2 (07:11→18:20)
[2019-11-20] MEDS: ESCITALOPRAM OXALATE 10 MG TAB (LEXAPRO) PO SCH (09:30)
[2019-11-20] MEDS: predniSONE 5 MG TAB PO SCH (09:30)
[2019-11-20] MEDS: ASPIRIN 81 MG ENTERIC TAB PO SCH (09:30)
[2019-11-20] MEDS: DOCUSATE SODIUM 100 MG CAP PO SCH (09:30)
[2019-11-20] MEDS: PANTOPRAZOLE 40MG TAB (PROTONIX) PO SCH (09:30)
[2019-11-20] MEDS: POLYSPORIN TOPICAL OINTMENT 15GM TOP SCH ×2 (09:31→20:35)
[2019-11-20] MEDS: buPROPion **XL** TABLET 150MG (WELLBUTRIN XL) PO SCH (20:35)
[2019-11-21] MEDS: METOPROLOL TART 50 MG TAB PO SCH ×5 (02:00→20:49)
[2019-11-21] MEDS: FORMOTEROL FUMARATE 20 MCG/2 ML INHALATION SOLUTION (PERFOROMIST) INH SCH ×2 (07:01→19:42)
[2019-11-21] MEDS: BUDESONIDE 0.5 MG/2 ML INHALATION SUSPENSION INH SCH ×2 (07:01→19:42)
[2019-11-21] MEDS: DOCUSATE SODIUM 100 MG CAP PO SCH (08:27)
[2019-11-21] MEDS: ASPIRIN 81 MG ENTERIC TAB PO SCH (08:27)
[2019-11-21] MEDS: predniSONE 5 MG TAB PO SCH (08:27)
[2019-11-21] MEDS: ESCITALOPRAM OXALATE 10 MG TAB (LEXAPRO) PO SCH (08:27)
[2019-11-21] MEDS: PANTOPRAZOLE 40MG TAB (PROTONIX) PO SCH (08:28)
[2019-11-21] MEDS: POLYSPORIN TOPICAL OINTMENT 15GM TOP SCH ×2 (08:31→20:49)
[2019-11-21] MEDS: buPROPion **XL** TABLET 150MG (WELLBUTRIN XL) PO SCH (20:49)
[2019-11-22] MEDS: METOPROLOL TART 50 MG TAB PO SCH ×4 (02:19→20:44)
[2019-11-22] MEDS: FORMOTEROL FUMARATE 20 MCG/2 ML INHALATION SOLUTION (PERFOROMIST) INH SCH ×2 (06:16→19:20)
[2019-11-22] MEDS: BUDESONIDE 0.5 MG/2 ML INHALATION SUSPENSION INH SCH ×2 (06:16→19:20)
[2019-11-22] MEDS: PANTOPRAZOLE 40MG TAB (PROTONIX) PO SCH (09:13)
[2019-11-22] MEDS: predniSONE 5 MG TAB PO SCH (09:13)
[2019-11-22] MEDS: DOCUSATE SODIUM 100 MG CAP PO SCH (09:13)
[2019-11-22] MEDS: ESCITALOPRAM OXALATE 10 MG TAB (LEXAPRO) PO SCH (09:13)
[2019-11-22] MEDS: ASPIRIN 81 MG ENTERIC TAB PO SCH (09:13)
[2019-11-22] MEDS: POLYSPORIN TOPICAL OINTMENT 15GM TOP SCH ×2 (09:16→20:44)
[2019-11-22] MEDS: buPROPion **XL** TABLET 150MG (WELLBUTRIN XL) PO SCH (20:44)
[2019-11-23] MEDS: METOPROLOL TART 50 MG TAB PO SCH ×2 (01:47→08:38)
[2019-11-23] MEDS: FORMOTEROL FUMARATE 20 MCG/2 ML INHALATION SOLUTION (PERFOROMIST) INH SCH (07:09)
[2019-11-23] MEDS: BUDESONIDE 0.5 MG/2 ML INHALATION SUSPENSION INH SCH (07:09)
[2019-11-23] MEDS: PANTOPRAZOLE 40MG TAB (PROTONIX) PO SCH (08:37)
[2019-11-23] MEDS: DOCUSATE SODIUM 100 MG CAP PO SCH (08:37)
[2019-11-23 08:38] VITALS: BP 118/70
[2019-11-23] MEDS: predniSONE 5 MG TAB PO SCH (08:38)
[2019-11-23] MEDS: ESCITALOPRAM OXALATE 10 MG TAB (LEXAPRO) PO SCH (08:38)
[2019-11-23] MEDS: ASPIRIN 81 MG ENTERIC TAB PO SCH (08:38)
[2019-11-23] MEDS: POLYSPORIN TOPICAL OINTMENT 15GM TOP SCH (08:39)
[2019-11-23] MEDS ORDERED: HYOS125TA PO (10:19)
[2019-11-23] MEDS ORDERED: ATIV1TAB10 PO (10:19)
[2019-11-23] MEDS ORDERED: MORP20SO3 PO (10:19)
--- NOTE | 2019-11-23 13:14 | DS.PDOC ---
Discharge Summary General Date of Admission November 12, 2019 at 13:50 Date of Discharge 11/23/2019 Discharge Summary PROCEDURES PERFORMED DURING STAY: [None]. ADMITTING DIAGNOSES / DISCHARGE DIAGNOSES: Sepsis Cardiogenic shock - 2/2 decompensated systolic and diastolic CHF (EF 10%) Acute respiratory failure Pneumonia Advanced COPD Atrial fibrillation with RVR Normocytic anemia Hyponatremia CAD (Hx of SD) Mechanical MV replacement LORETTA on CKD3 Lactic acidosis Cachexia COMPLICATIONS/CHIEF COMPLAINT: Shortness of breath HISTORY OF PRESENT ILLNESS / HOSPITAL COURSE: Patient is a 74-year-old female with a PMHx of CAD (Hx of SD), A. fib (on Coumadin), Mechanical MV replacement, COPD w/ bronchiectasis, Asthma, CKD3, Anxiety, he was transferred from [facility] after she was found to have a community-acquired pneumonia and was in atrial fibrillation with rapid ventricular rate. Lab work at [facility] had revealed an elevated troponin. Patient was admitted to hospitalist service for further evaluation and treatment of pneumonia. Throughout hospital course patient went into cardiogenic shock. Was placed on dobutamine drip. On 11/15, patient was transitioned to comfort measures. MOLST form was updated to reflect this change Patient was ultimately accepted to [facility] under comfort measure on 11/23/2019. DISCHARGE MEDICATIONS: Please see below. ALLERGIES: Please see below. PHYSICAL EXAMINATION ON DISCHARGE: Laying in bed, appears comfortable Full exam not completed LABORATORY DATA: Please see below. ACTIVITY: [As tolerated]. DISCHARGE PLAN: Follow-up with primary care provider if pain is uncontrolled Remained compliant with treatment plan and medications DISPOSITION: SSV with PROGRAM ASSISTANT status DISCHARGE CONDITION: [Stable]. TIME SPENT ON DISCHARGE: 35 minutes. Vital Signs/I&Os Vital Signs Date Time Temp Pulse Resp B/P (MAP) Pulse Ox O2 Delivery O2 Flow Rate FiO2 11/23/19 08:38 64 118/70 I&O- Last 24 Hours up to 6 AM 11/23/19 06:00 Intake Total 1535 ml Output Total 200 ml Balance 1335 ml Microbiology Microbiology 11/21/19 Coronavirus COVID-19 PCR (BIJAL) - Final, Complete Discharge Medications Scheduled Bupropion Hcl (Bupropion Xl) 150 Mg Tab.er.24h, 150 MG PO QHS, (Reported) Docusate Sodium (Colace) 100 Mg Capsule, 100 MG PO DAILY, (Reported) Escitalopram Oxalate (Escitalopram Oxalate) 20 Mg Tablet, 20 MG PO DAILY, (Reported) Metoprolol Succinate (Metoprolol Succinate) 50 Mg Tab.er.24h, 50 MG PO QHS, (Reported) Pantoprazole Sodium (Pantoprazole Sodium) 40 Mg Tablet.dr, 40 MG PO DAILY, (Reported) Scheduled PRN Hyoscyamine Sulfate (Hyoscyamine Sulfate) 0.125 Mg Tab.subl, 0.125 MG PO Q4HP PRN for TERMINAL SECRETIONS Use sublingually if unable to swallow Lorazepam (Ativan) 0.5 Mg Tablet, 0.5 MG PO Q4HP PRN for ANXIETY/AGITATION Use sublingually if unable to swallow Morphine Sulfate (Morphine Sulfate) 100 Mg/5 Ml Solution, 0.25-1 ML PO Q2H PRN for PAIN OR DYSPNEA Use sublingually if unable to swallow Allergies Coded Allergies: sulfamethoxazole (Verified Allergy, Mild, RASH, 11/12/19) trimethoprim (Verified Allergy, Mild, RASH, 11/12/19) POLINA MEJÍA MD Nov 23, 2019 13:14
[2019-11-25] MEDS ORDERED: MORP20SOL SL (12:54)
== END 2019-11-23 12:34 | DRG 871 ==
LOC: M PCU 13:50 → M ICU 11-13 07:33 → M PCU 11-15 15:15 → M MSPAV 11-17 15:33
PROVIDERS: ADMIT Internal Medicine; ATTEND Internal Medicine
DX: A41.9 Sepsis, unspecified organism (principal); J18.9 Pneumonia, unspecified organism; I50.43 Acute on chronic combined systolic (congestive) and diastolic (congestive) heart failure; R57.0 Cardiogenic shock; J96.91 Respiratory failure, unspecified with hypoxia; I48.20 Chronic atrial fibrillation, unspecified; R64 Cachexia; J44.0 Chronic obstructive pulmonary disease with (acute) lower respiratory infection; E87.1 Hypo-osmolality and hyponatremia; E87.2 Acidosis; N18.2 Chronic kidney disease, stage 2 (mild); I27.81 Cor pulmonale (chronic); I50.810 Right heart failure, unspecified; I49.5 Sick sinus syndrome; N18.3 Chronic kidney disease, stage 3 (moderate); Z95.2 Presence of prosthetic heart valve; I25.10 Atherosclerotic heart disease of native coronary artery without angina pectoris; I25.2 Old myocardial infarction; F41.9 Anxiety disorder, unspecified; Z79.899 Other long term (current) drug therapy; Z88.2 Allergy status to sulfonamides; Z88.8 Allergy status to other drugs, medicaments and biological substances; Z79.01 Long term (current) use of anticoagulants; E87.5 Hyperkalemia; E83.39 Other disorders of phosphorus metabolism; K64.8 Other hemorrhoids; Z66 Do not resuscitate; Z79.52 Long term (current) use of systemic steroids; Z86.73 Personal history of transient ischemic attack (TIA), and cerebral infarction without residual deficits

== ENCOUNTER 2019-11-25 11:57 | Observation (INO) | payer MEDICARE, BC ==
[~2019-11-25] VITALS: Ht 200.7 cm; Wt 57.2 kg
[~2019-11-25 11:57] MED LIST: ASPI-161 PO; ATIV1TAB10 PO; BUPR150T3 PO; CALC600T6 PO; CEFE2INJ2 IV; COLA100C5 PO; CULTCAP2 PO; DIGO0.123 PO; DILT1CAP3 PO; ENOX60IN3 SQ; ESCI20TA PO; FURO20TA2 PO; HYOS125TA PO; INSUHUMDS SC; JANU25TA PO; METO1TAB7 PO; MORP20SO3 PO; PANT40TA3 PO; VITMTA PO
[2019-11-25] MEDS ORDERED: ENEMENE PR (12:54)
[2019-11-25] MEDS ORDERED: SCOP1PAT2 TOP (12:54)
[2019-11-25] MEDS ORDERED: FEVE650S3 PR (12:54)
[2019-11-25] MEDS ORDERED: PROC25SU24 PR (12:54)
[2019-11-25] MEDS ORDERED: POLYOPD OU (12:54)
[2019-11-25] MEDS ORDERED: MILKSUS3 PO (12:54)
[2019-11-25] MEDS ORDERED: [UNRECOGNIZED DRUG - CODE] MM (12:54)
[2019-11-25] MEDS ORDERED: ATIV1TAB10 SL (12:54)
[2019-11-25] MEDS ORDERED: HYOS0.1214 SL (12:54)
[2019-11-25] MEDS ORDERED: APAP325T4 PO (12:54)
[2019-11-25] MEDS ORDERED: LEXA1TAB PO (12:54)
[2019-11-25] MEDS ORDERED: BISA10SU27 PR (12:54)
[2019-11-25] MEDS ORDERED: MORP1SOL SL (12:54)
[2019-11-25 13:15] LABS: BASO % 0.2 % (0.0-1.0); EOS % 0.4 % (0.0-3.0); HEMATOCRIT 31.2 % (36.0-47.0); LYMPH # 0.7 10^3/uL (1.5-5.0); LYMPH % 8.2 % (24.0-44.0); MEAN CORPUSCULAR HEMOGLOBIN 32.6 pg (27.0-33.0); MEAN CORPUSCULAR HGB CONC 32.1 g/dl (32.0-36.5); MEAN CORPUSCULAR VOLUME 101.6 fl (80.0-96.0); MONO # 0.4 10^3/uL (0.0-0.8); MONO % 4.3 % (0.0-5.0); NEUTROPHILS % 86.5 % (36.0-66.0); PLATELET COUNT, AUTOMATED 202 10^3/uL (150-450); RED BLOOD COUNT 3.07 10^6/uL (4.00-5.40); WHITE BLOOD COUNT 8.1 10^3/uL (4.0-10.0)
[2019-11-25 13:29] LABS: INR 1.12; PROTHROMBIN TIME 14.1 SECONDS (11.8-14.0)
[2019-11-25 13:30] LABS: PARTIAL THROMBOPLASTIN TIME 27.5 SECONDS (25.0-38.4)
[2019-11-25 13:45] LABS: ALBUMIN 2.9 GM/DL (3.2-5.2); ALT/SGPT 17 U/L (12-78); BILIRUBIN,DIRECT 0.1 MG/DL (0.0-0.2); BILIRUBIN,TOTAL 0.5 MG/DL (0.2-1.0); BLOOD UREA NITROGEN 22 MG/DL (7-18); CALCIUM LEVEL 8.1 MG/DL (8.8-10.2); CARBON DIOXIDE LEVEL 28 MEQ/L (21-32); CHLORIDE LEVEL 105 MEQ/L (98-107); CK-MB VALUE MASS 2.2 NG/ML (<3.6); CPK CREATINE PHOSPHOKINASE 29 U/L (26-192); CREATININE FOR GFR 0.93 MG/DL (0.55-1.30); FREE T4 0.99 NG/DL (0.76-1.46); GLOMERULAR FILTRATION RATE > 60.0 (>39); GLUCOSE, FASTING 141 MG/DL (70-100); LIPASE 84 U/L (73-393); MB/CK RELATIVE INDEX 7.59 (< OR =4); NT-PRO BNP 12385 PG/ML (<125); POTASSIUM SERUM 4.3 MEQ/L (3.5-5.1); SODIUM LEVEL 139 MEQ/L (136-145); TOTAL PROTEIN 6.4 GM/DL (6.4-8.2); TROPONIN I 0.08 NG/ML (< 0.10)
[2019-11-25] MEDS ORDERED: ONDANSETRON 4MG/2ML VIAL As Ordered ONE (15:23)
[2019-11-25] MEDS ORDERED: METOPROLOL 5 MG/5 ML VIAL As Ordered ONE (15:28)
[2019-11-25] MEDS ORDERED: ONDANSETRON 4MG/2ML VIAL IV ONE (15:30)
[2019-11-25] MEDS ORDERED: METOPROLOL TART 50 MG TAB PO ONE ×2 (15:30→15:45)
[2019-11-25] MEDS: METOPROLOL 5 MG/5 ML VIAL IV SCH ×3 (15:34→15:40)
[2019-11-25 15:37] LABS: C REACTIVE PROTEIN QUANTITATIV 1.48 MG/DL (0.00-0.30)
[2019-11-25] MEDS ORDERED: METOPROLOL TART 50 MG TAB As Ordered ONE (15:42)
[2019-11-25] MEDS ORDERED: POLYVINYL ALCOHOL OPHTH SOLN 15 ML(LIQUITEARS) OU PRN (15:45)
[2019-11-25] MEDS ORDERED: MOM 30ML SUSPENSION UDC PO PRN (15:45)
[2019-11-25] MEDS ORDERED: BISACODYL 10 MG SUPP PR PRN (15:45)
[2019-11-25] MEDS ORDERED: SCOPOLAMINE 1MG TRANSDERMAL PATCH TOP PRN (15:45)
[2019-11-25] MEDS ORDERED: MORPHINE 10MG/0.5ML ORAL CONCENTRATE SOLUTION U/D SL PRN (15:45)
[2019-11-25] MEDS ORDERED: ACETAMINOPHEN TAB 650MG DOSE (2X325MG) PO PRN (15:45)
[2019-11-25] MEDS ORDERED: LORazepam 0.5 MG TAB SL PRN (15:45)
[2019-11-25] MEDS ORDERED: HYOSCYAMINE SULFATE 0.125 MG SUBL TABLET SL PRN (15:45)
[2019-11-25] MEDS ORDERED: PROCHLORPERAZINE 25 MG SUPP PR PRN (15:45)
--- NOTE | 2019-11-25 16:08 | HPEPDOC ---
General Date of Admission 11/25/2019 Date of Service: Nov 25, 2019 Chief Complaint The patient is a 74-year-old female Who presents to the ER after she was found to have an elevated heart rate while at the assisted History of Present Illness Patient is a 74-year-old female with a past medical history of COPD with bronchiectasis/cryptogenic organizing pneumonia/asthma, CAD (Hx of [place]), Bioprosthetic MV, Chronic Systolic and Diastolic CHF (EF: 10%), A. fib (not on anticoagulation), Normocytic anemia, CKD3, Cachexia , who presented to the hospital after she was noted to have an elevated heart rate. Patient was recently admitted to the hospital for cardiogenic shock secondary to decompensated systolic and diastolic heart failure as well as atrial fibrillation with RVR on 11/12/2019. Ultimately on 11/15, because of her deteriorating condition patient was made comfort measures and was also noted transition to the assisted, [facility] on 11/23/2019 under FICTION AND NONFICTION WRITER PROSE status. While at assisted today, patient was visiting her son. He had advised nursing staff to check her heart rate and was found to be elevated. Patient was subsequently sent to [facility] emergency room for further evaluation. Currently patient denies any chest pain or feelings of palpitations. She denies any change in her baseline cough. Reports its been dry does report some mild shortness of breath. Reports some nausea without vomiting. Denies any abdominal pain, constipation, diarrhea, or urinary discomfort. Patients son, Ankit is at the bedside, extensive discussion about goals of care. Currently patient will remain FICTION AND NONFICTION WRITER PROSE and will be placed on observation status in the hospital for rate control. Again discussed with patient and son about poor prognosis and at this point, the focus will continue to remain keeping her comfortable. Patients son has agreed that we will keep her inpatient for rate control for symptomatic relief with the plan of returning to [facility] under comfort measures and an adjusted rate control regimen. Home Medications Scheduled Bupropion Hcl (Bupropion Xl) 150 Mg Tab.er.24h, 150 MG PO QHS, (Reported) Docusate Sodium (Colace) 100 Mg Capsule, 200 MG PO DAILY, (Reported) Escitalopram Oxalate (Lexapro) 10 Mg Tablet, 10 MG PO DAILY, (Reported) Metoprolol Succinate (Metoprolol Succinate) 50 Mg Tab.er.24h, 50 MG PO QHS, (Reported) Pantoprazole Sodium (Pantoprazole Sodium) 40 Mg Tablet.dr, 40 MG PO DAILY, (Reported) Scheduled PRN Acetaminophen (Acetaminophen) 325 Mg Tablet, 650 MG PO Q4H PRN for PAIN / FEVER, (Reported) Acetaminophen (Feverall) 650 Mg Supp.rect, 650 MG VT Q4H PRN for PAIN / FEVER, (Reported) Bisacodyl (Bisacodyl) 10 Mg Supp.rect, 10 MG VT DAILY PRN for CONSTIPATION, (Reported) Hyoscyamine Sulfate (Hyoscyamine Sulfate) 0.125 Mg Tab.rapdis, 0.125 MG SL Q4H PRN for TERMINAL SECRETIONS, (Reported) Lorazepam (Ativan) 0.5 Mg Tablet, 0.25 MG SL Q4H PRN for ANXIETY/AGITATION, (Reported) Magnesium Hydroxide (Milk of Magnesia) 400 Mg/5 Ml Oral.susp, 30 ML PO DAILY PRN for CONSTIPATION, (Reported) Morphine Sulfate (Morphine Sulfate Concentrate) 100 Mg/5 Ml Solution, 5 MG SL Q2H PRN for PAIN OR DYSPNEA, (Reported) Polyvinyl Alcohol (Artificial Tears) 15 Ml Drops, 1 DROP OU Q1H PRN for DRY EYES, (Reported) Prochlorperazine (Prochlorperazine) 25 Mg Supp.rect, 25 MG VT Q12H PRN for NAUSEA OR VOMITING, (Reported) Saliva Substitute Combo No.3 (Xerostomia Relief) 10 Ml Howe.pump, 10 ML MM Q4H PRN for DRY MOUTH, (Reported) Scopolamine (Transderm-Scop) 1 Each Patch.td.3, 1 PATCH TOP Q72H PRN for TERMINAL SECRETIONS, (Reported) Sodium Phosphate,King-Dibasic (Enema) 133 Ml Enema, 1 RENETTA VT Q3DP PRN for CONSTIPATION, (Reported) Allergies Coded Allergies: sulfamethoxazole (Verified Allergy, Mild, RASH, 11/12/19) trimethoprim (Verified Allergy, Mild, RASH, 11/12/19) Past Medical History Medical History COPD with bronchiectasis/cryptogenic organizing pneumonia/asthma, CAD (Hx of [place]), Bioprosthetic MV, Chronic Systolic and Diastolic CHF (EF: 10%), A. fib (not on anticoagulation), Normocytic anemia, CKD3, Cachexia Surgical History MV replacement with Bioprosthetic Tubal ligation Family History - Family history was reviewed and is noncontributory Social History - Denies the use of alcohol, tobacco or illicit drugs - From [facility] under FICTION AND NONFICTION WRITER PROSE status Review of Systems Other systems 10 point review of systems complete, all negative otherwise stated in HPI Vital Signs - Vitals: BP 112/81, HR 141, RR 18, Sat 97%RA, Temp 98.0F - General: Lying in bed, Appears comfortable, Awake / Alert - HEENT: NC, AT, PERRLA, - CVS: IrIr, +S1S2 - Lungs: Fair air entry bilaterally, No appreciable wheezing / rales / rhonchi - Abdomen: Soft, Non-distended, Non-tender - Extremities: No lower extremity edema, No calf tenderness - Neuro: No focal motor or sensory deficit - Skin: No visible rashes Laboratory Data Labs 24H Laboratory Tests 2 11/25/19 12:33: Immature Granulocyte % (Auto) 0.4, Neutrophils (%) (Auto) 86.5H, Lymphocytes (%) (Auto) 8.2L, Monocytes (%) (Auto) 4.3, Eosinophils (%) (Auto) 0.4, Basophils (%) (Auto) 0.2, Neutrophils # (Auto) 7.0, Lymphocytes # (Auto) 0.7L, Monocytes # (Auto) 0.4, Eosinophils # (Auto) 0.0, Basophils # (Auto) 0.0, Nucleated Red Blood Cells % (auto) 0.0, Prothrombin Time 14.1H, Prothromb Time International Ratio 1.12, Activated Partial Thromboplast Time 27.5, Anion Gap 6L, Glomerular Filtration Rate > 60.0, Calcium Level 8.1L, Total Bilirubin 0.5, Direct Bilirubin 0.1, Aspartate Amino Transf (AST/SGOT) 15, Alanine Aminotransferase (ALT/SGPT) 17, Alkaline Phosphatase 90, Total Creatine Kinase 29, Creatine Kinase MB 2.2, Creatine Kinase MB Relative Index 7.59H, Troponin I 0.08, C- Reactive Protein, Quantitative 1.48H, VF-Qcf-Q-Type Natriuretic Peptide 63115X, Total Protein 6.4, Albumin 2.9L, Albumin/Globulin Ratio 0.8L, Lipase 84, Thyroid Stimulating Hormone (TSH) 3.290, Free Thyroxine 0.99 CBC/BMP Laboratory Tests 11/25/19 12:33 Plan / VTE VTE Prophylaxis Ordered?: Yes Plan Plan Elevated HR / Palpitations - likely A. fib with RVR - Patient presented from [facility] under comfort measures - In emergency room, patient was has been A. fib with RVR with a rapid ventricular response of 141 - Troponin not elevated / BNP significantly elevated - Will be placed on observation and rate control medications will be adjusted - Discussed goals of care with family and patient; currently she wishes to remain comfort measures focus on nonaggressive interventions - Will adjust rate control; increase metoprolol tartrate - Currently will remain off anticoagulation Will continue with home medications including FICTION AND NONFICTION WRITER PROSE order set - Morphine / Ativan / Scopolamine DVT prophylaxis - c/w TEDs / Sequentials as tolerated POLINA MEJÍA MD Nov 25, 2019 16:08
[2019-11-25] MEDS ORDERED: LevoFLOXacin 500 MG TABLET PO SCH (18:00)
--- NOTE | 2019-11-25 19:21 | ECGEPIP ---
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
[2019-11-25 20:00] VITALS: BP 96/51
[2019-11-25] MEDS: METOPROLOL TART 25 MG TABLET PO SCH (20:48)
[2019-11-25] MEDS: buPROPion **XL** TABLET 150MG (WELLBUTRIN XL) PO SCH (20:49)
[2019-11-26] VITALS: BP 125/71
[2019-11-26] MEDS: METOPROLOL TART 25 MG TABLET PO SCH ×4 (03:45→20:16)
[2019-11-26 04:00] VITALS: BP 121/70
[2019-11-26 08:00] VITALS: BP 143/68
[2019-11-26] MEDS: ESCITALOPRAM OXALATE 10 MG TAB (LEXAPRO) PO SCH (08:18)
[2019-11-26] MEDS: DOCUSATE SODIUM 100 MG CAP PO SCH (08:18)
[2019-11-26] MEDS: PANTOPRAZOLE 40MG TAB (PROTONIX) PO SCH (08:18)
--- NOTE | 2019-11-26 11:26 | IPNPDOC ---
Date Seen The patient was seen on 11/26/19. 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 She does want her heart rate to be better controlled as it does cause her discomfort occasionally. She does not wish to pursue any other forms of treatment at this time. Patient's antibiotics will be discontinued, will be downgraded to MedSurg and likely discharge back to facility tomorrow. VS, I&O, 24H, Fishbone Vital Signs/I&O Vital Signs Date Time Temp Pulse Resp B/P (MAP) Pulse Ox O2 Delivery O2 Flow Rate FiO2 11/26/19 09:05 67 143/68 11/26/19 08:00 97.8 16 97 Room Air I&O- Last 24 Hours up to 6 AM 11/26/19 06:00 Intake Total 720 ml Output Total 0 ml Balance 720 ml Laboratory Data 24H LABS Laboratory Tests 2 11/25/19 12:33: Immature Granulocyte % (Auto) 0.4, Neutrophils (%) (Auto) 86.5H, Lymphocytes (%) (Auto) 8.2L, Monocytes (%) (Auto) 4.3, Eosinophils (%) (Auto) 0.4, Basophils (%) (Auto) 0.2, Neutrophils # (Auto) 7.0, Lymphocytes # (Auto) 0.7L, Monocytes # (Au to) 0.4, Eosinophils # (Auto) 0.0, Basophils # (Auto) 0.0, Nucleated Red Blood Cells % (auto) 0.0, Prothrombin Time 14.1H, Prothromb Time International Ratio 1.12, Activated Partial Thromboplast Time 27.5, Anion Gap 6L, Glomerular Filtration Rate > 60.0, Calcium Level 8.1L, Total Bilirubin 0.5, Direct Bilirubin 0.1, Aspartate Amino Transf (AST/SGOT) 15, Alanine Aminotransferase (ALT/SGPT) 17, Alkaline Phosphatase 90, Total Creatine Kinase 29, Creatine Kinase MB 2.2, Creatine Kinase MB Relative Index 7.59H, Troponin I 0.08, C- Reactive Protein, Quantitative 1.48H, RP-Smz-[id number]-Type Natriuretic Peptide 90004G, Total Protein 6.4, Albumin 2.9L, Albumin/Globulin Ratio 0.8L, Lipase 84, Thyroid Stimulating Hormone (TSH) 3.290, Free Thyroxine 0.99 CBC/BMP Laboratory Tests 11/25/19 12:33 PERRY GAVIN MD Nov 26, 2019 11:26
[2019-11-26 12:00] VITALS: BP 138/71
[2019-11-26] MEDS: buPROPion **XL** TABLET 150MG (WELLBUTRIN XL) PO SCH (20:16)
[2019-11-27] MEDS: METOPROLOL TART 25 MG TABLET PO SCH ×4 (03:14→20:55)
[2019-11-27] MEDS: ESCITALOPRAM OXALATE 10 MG TAB (LEXAPRO) PO SCH (08:07)
[2019-11-27] MEDS: DOCUSATE SODIUM 100 MG CAP PO SCH (08:07)
[2019-11-27] MEDS: PANTOPRAZOLE 40MG TAB (PROTONIX) PO SCH (08:07)
--- NOTE | 2019-11-27 10:49 | REP ---
REASON FOR EXAM: Chest pain. COMPARISON: Multiple, the latest 11/22/2018. Preliminary report given by Dr. Alejandro. The technique utilized in obtaining the radiograph has magnified the cardiac silhouette and accentuated the interstitial markings. There is new right CP angle blunting. There are marked chronic parenchymal opacities, which are irregular. There is evidence of new tenting of the diaphragmatic surface of the left lung with subtle left CP angle blunting. The cardiomediastinal silhouette is essentially unchanged. There is no change in the osseous structures. IMPRESSION: 1. New bibasilar opacities and other findings as described above, suggesting small bilateral pleural effusions with atelectasis/potential pneumonia. This should be correlated clinically with appropriate followup. 2. Other findings and chronic changes as described above. Electronically Signed by Antelmo Wallace DO 11/27/2019 10:59 A
[2019-11-27] MEDS ORDERED: ONDANSETRON 4 MG ORAL DISINTEGRATING TAB SL PRN (12:15)
--- NOTE | 2019-11-27 15:21 | DS.PDOC ---
Discharge Summary General Date of Admission Nov 25, 2019 at 15:45 Date of Discharge 11/28/2019 Discharge Summary PROCEDURES PERFORMED DURING STAY: [None]. ADMITTING DIAGNOSES: 1. Elevated HR / Palpitations, likely A. fib with RVR 2. Will continue with home medications including BATH STEWARD order set DISCHARGE DIAGNOSES: 1. A. fib, now without RVR 2. Cont home medications including BATH STEWARD order set 3. COVID-19 neg COMPLICATIONS/CHIEF COMPLAINT: Atrial Fibrillation W/Rapid Ventricular Response. HISTORY OF PRESENT ILLNESS: Patient is a 74 yo female with a PMH of COPD with bronchiectasis/cryptogenic organizing pneumonia/asthma, CAD with Hx of [place], bioprosthetic MV, chronic Systolic and Diastolic CHF with EF 10%, A. fib not on anticoagulation, normocytic anemia, CKD3, and cachexia presented to [facility] after she was noted to have an elevated heart rate. It was noted that she was recently admitted to the hospital for cardiogenic shock 2/2 decompensated systolic and diastolic heart failure as well as atrial fibrillation with RVR on 11/12/2019. 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 It was noted that on 11/25/2019, pt's son advised jail staff to check her heart rate and found it be elevated, and patient was subsequently sent to [facility] ER for further evaluation. HOSPITAL COURSE: It was noted that upon admission, patients son, Ankit is at the bedside, extensive discussion about goals of care. and that pt will remain BATH STEWARD and will be placed on observation status in the hospital for rate control. Pt's home med Metoprolol Succinate ER 50mg QD was d/c and she was started on Metoprolol Tartate 25mg Q6H, and her heart rate was well controlled. On 11/27/2019, pt was tested for COVID 19 with her COVID19 result returned neg in the afternoon. Pt was determined ready to return to [facility] on 11/28/2019. On the day of the discharge, pt denies any chest pain, palpitation, dyspnea, fever, chills, abdominal pain, constipation, or diarrhea. DISCHARGE MEDICATIONS: Please see below. ALLERGIES: Please see below. PHYSICAL EXAMINATION ON DISCHARGE: VITAL SIGNS: Please see below. General Exam: Alert, Cooperative, No Acute Distress, cachetic Eye Exam: Conjunctiva & lids normal ENT Exam: Atraumatic Neck Exam: Supple Chest Exam: Normal air movement, mildly diminished b/l; no rales, rhonchi, or wheezing Heart Exam: Rate Normal, Irregular Rhythm Abdomen Exam: Normal bowel sounds, Soft, no tenderness upon palpation in all 4 quadrants Neuro Exam: Normal Tone, moving all 4 extremities Psych Exam: Mental status wnl, Mood appro to situation, Memory and cognitive function Intact LABORATORY DATA: Please see below. IMAGING: CXR 11/25/2019 showed new bibasilar opacities, small bilateral pleural effusions with atelectasis/potential pneumonia PROGNOSIS: [Poor] ACTIVITY: [As tolerated]. DIET: [As tolerated/2g Na diet] DISCHARGE PLAN AND INSTRUCTIONS: 1. Return to [facility] TO FOLLOWUP ON ON OUTPATIENT: 1. A fib. heart rate DISCHARGE CONDITION: [Improved]. TIME SPENT ON DISCHARGE: Greater than [32] minutes. Vital Signs/I&Os Vital Signs Date Time Temp Pulse Resp B/P (MAP) Pulse Ox O2 Delivery O2 Flow Rate FiO2 11/27/19 14:45 148 100/72 11/26/19 12:00 97.3 15 100 Room Air I&O- Last 24 Hours up to 6 AM 11/27/19 06:00 Intake Total 1320 ml Output Total 950 ml Balance 370 ml Microbiology Microbiology 11/27/19 Respiratory Virus Panel (PCR) (BIJAL) - Final, Complete Discharge Medications Scheduled Bupropion Hcl (Bupropion Xl) 150 Mg Tab.er.24h, 150 MG PO QHS, (Reported) Docusate Sodium (Colace) 100 Mg Capsule, 200 MG PO DAILY, (Reported) Escitalopram Oxalate (Lexapro) 10 Mg Tablet, 10 MG PO DAILY, (Reported) Metoprolol Tartrate (Metoprolol Tartrate) 25 Mg Tablet, 25 MG PO Q6H Pantoprazole Sodium (Pantoprazole Sodium) 40 Mg Tablet.dr, 40 MG PO DAILY, (Reported) Scheduled PRN Acetaminophen (Acetaminophen) 325 Mg Tablet, 650 MG PO Q4H PRN for PAIN / FEVER, (Reported) Acetaminophen (Feverall) 650 Mg Supp.rect, 650 MG DC Q4H PRN for PAIN / FEVER, (Reported) Bisacodyl (Bisacodyl) 10 Mg Supp.rect, 10 MG DC DAILY PRN for CONSTIPATION, (Reported) Hyoscyamine Sulfate (Hyoscyamine Sulfate) 0.125 Mg Tab.rapdis, 0.125 MG SL Q4H PRN for TERMINAL SECRETIONS, (Reported) Lorazepam (Ativan) 0.5 Mg Tablet, 0.25 MG SL Q4H PRN for ANXIETY/AGITATION, (Reported) Magnesium Hydroxide (Milk of Magnesia) 400 Mg/5 Ml Oral.susp, 30 ML PO DAILY PRN for CONSTIPATION, (Reported) Morphine Sulfate (Morphine Sulfate Concentrate) 100 Mg/5 Ml Solution, 5 MG SL Q2H PRN for PAIN OR DYSPNEA, (Reported) Ondansetron (Ondansetron Odt) 4 Mg Tab.rapdis, 4 MG SL Q6HP PRN for NAUSEA OR VOMITING Polyvinyl Alcohol (Artificial Tears) 15 Ml Drops, 1 DROP OU Q1H PRN for DRY EYES, (Reported) Prochlorperazine (Prochlorperazine) 25 Mg Supp.rect, 25 MG DC Q12H PRN for NAUSEA OR VOMITING, (Reported) Saliva Substitute Combo No.3 (Xerostomia Relief) 10 Ml [place].pump, 10 ML MM Q4H PRN for DRY MOUTH, (Reported) Scopolamine (Transderm-Scop) 1 Each Patch.td.3, 1 PATCH TOP Q72H PRN for TERMINAL SECRETIONS, (Reported) Sodium Phosphate,[place]-Dibasic (Enema) 133 Ml Enema, 1 [place] DC Q3DP PRN for CONSTIPATION, (Reported) Allergies Coded Allergies: sulfamethoxazole (Verified Allergy, Mild, RASH, 11/12/19) trimethoprim (Verified Allergy, Mild, RASH, 11/12/19) JOJO TAMEZ DO Nov 27, 2019 15:20
--- NOTE | 2019-11-27 15:28 | IPNPDOC ---
Subjective Date Seen The patient was seen on 11/27/19. Subjective Chief Complaint/HPI Pt is [employer] pt, she was examined at bedside while laying on bed. She denies any chest pain, palpitation, or dyspnea. She voiced no complaints Constitutional: Denies: Chills, Fever Pulmonary: Denies: Dyspnea Cardiovascular: Denies: Chest Pain, Palpitations Objective Physical Examination General Exam: Positive: Alert, Cooperative, No Acute Distress, Other (cachetic) Eye Exam: Positive: Conjunctiva & lids normal ENT Exam: Positive: Atraumatic Neck Exam: Positive: Supple Chest Exam: Positive: Normal air movement, Diminished (mildly b/l); Negative: Rales, Rhonchi, Wheezing Heart Exam: Positive: Rate Normal, Irregular Rhythm Abdomen Exam: Positive: Normal bowel sounds, Soft Neuro Exam: Positive: Normal Speech, Normal Tone Psych Exam: Positive: Mental status NL, Mood NL, Memory Intact Assessment /Plan Assessment 1. A. fib with RVR/ Patient presented from [facility] under [employer]. Upon admission, pt was noted to have A. fib with RVR with HR 141. Troponin not elevated. BNP significantly elevated. HR currently controlled with meds; cont metoprolol tartrate. Will remain off anticoagulation 2. Cont home medications including [employer] order set. Cont Morphine, Ativan, Scopolamine 3. COVID-19 neg. [id number] neg today but returned in the afternoon. Pt is anticipated to return to [facility] tomorrow with optimized a. fib rate control DVT prophylaxis. Cont with TEDs and SCD as tolerated Discussed with health care proxy Ankit and Wilver, both sons reported to be health care proxy, would like pt to remain [employer]; send to hospital and be on antibiotics in the future. MOLST form will be updated accordingly. Attending attestation: I evaluated and examined the patient in person; I discussed the care with Resident in detail and agree with the plan above. Plan/VTE VTE Prophylaxis Ordered?: Yes Plan Anticipated Discharge: Correction Disposition anticipate d/c back to [facility]. COVID19 neg today but returned in the afternoon VS, I&O, 24H, Fishbone Vital Signs/I&O Vital Signs Date Time Temp Pulse Resp B/P (MAP) Pulse Ox O2 Delivery O2 Flow Rate FiO2 11/27/19 14:45 148 100/72 11/26/19 12:00 97.3 15 100 Room Air I&O- Last 24 Hours up to 6 AM 11/27/19 06:00 Intake Total 1320 ml Output Total 950 ml Balance 370 ml Laboratory Data Microbiology Microbiology 11/27/19 Respiratory Virus Panel (PCR) (BIJAL) - Final, Complete JOJO TAMEZ DO Nov 27, 2019 15:28 PERRY GAVIN MD Dec 01, 2019 19:22
[2019-11-27] MEDS: buPROPion **XL** TABLET 150MG (WELLBUTRIN XL) PO SCH (20:54)
[2019-11-28] MEDS: METOPROLOL TART 25 MG TABLET PO SCH ×2 (03:05→09:15)
[2019-11-28] MEDS ORDERED: ONDA4TAB6 SL (08:50)
[2019-11-28] MEDS ORDERED: METO1TAB87 PO (08:50)
[2019-11-28] MEDS: PANTOPRAZOLE 40MG TAB (PROTONIX) PO SCH (09:14)
[2019-11-28] MEDS: ESCITALOPRAM OXALATE 10 MG TAB (LEXAPRO) PO SCH (09:14)
[2019-11-28] MEDS: DOCUSATE SODIUM 100 MG CAP PO SCH (09:14)
[2019-11-28 09:15] VITALS: BP 119/66
== END 2019-11-28 11:06 ==
LOC: M ED 11:57 → M ED INP 15:45 → M PCU 17:55 → M MSPAV 11-26 12:01
PROVIDERS: ADMIT Internal Medicine; ATTEND Internal Medicine
DX: I48.91 Unspecified atrial fibrillation (principal); I50.42 Chronic combined systolic (congestive) and diastolic (congestive) heart failure; J44.9 Chronic obstructive pulmonary disease, unspecified; J18.9 Pneumonia, unspecified organism; Z95.2 Presence of prosthetic heart valve; I25.10 Atherosclerotic heart disease of native coronary artery without angina pectoris; I25.2 Old myocardial infarction; D64.9 Anemia, unspecified; N18.3 Chronic kidney disease, stage 3 (moderate); R64 Cachexia; Z79.899 Other long term (current) drug therapy; E55.9 Vitamin D deficiency, unspecified; Z88.2 Allergy status to sulfonamides
CPT/HCPCS: 71045; 80048; 80076; 82550; 82553; 83690; 83880; 84439; 84443; 84484; 85025; 85610; 85730; 86140; 87486; 87581; 87633; 87798; 93005; 93041; 94760; 96374; 99285; G0378; J2405; Q0162

== ENCOUNTER → 2019-11-30 | Outpatient (REF) ==
[~2019-11-30] MED LIST changes: +APAP325T4 PO; +ATIV1TAB10 SL; +BISA10SU27 PR; +ENEMENE PR; +FEVE650S3 PR; +HYOS0.1214 SL; +LEXA1TAB PO; +METO1TAB87 PO; +MILKSUS3 PO; +MORP1SOL SL; +ONDA4TAB6 SL; +POLYOPD OU; +PROC25SU24 PR; +SCOP1PAT2 TOP; +[UNRECOGNIZED DRUG - CODE] MM
--- NOTE | 2019-11-30 16:49 | REPPI ---
Single view chest: 11/30/2019. Indication: Dyspnea. Chest pain. Comparison: 11/25/2019. Findings: More pronounced patchy pulmonary opacities are present within the lungs, particularly on the right. Small right-sided pleural effusion is noted. Cardiac silhouette is borderline enlarged. There is no pneumothorax. More pronounced interstitial markings are additionally noted. Impression: Increased patchy pulmonary opacities, particularly on the right with multifocal pneumonia considered. Mildly increased right pleural effusion. Increased interstitial markings and vascular markings suggestive of underlying pulmonary edema. Electronically Signed by Vladimir Decker DO 11/30/2019 04:41 P
== END ==
PROVIDERS: ATTEND Internal Medicine
DX: R35.0 Frequency of micturition (principal); R11.0 Nausea